=== PATIENT | male | born 1960 | race Caucasian/White ===

== ENCOUNTER 2016-05-05 12:59 | Emergency (ER) | payer BC ==
[2016-05-05] MEDS ORDERED: IBUPROFEN 800 MG TABLET PO ONE (13:19)
[2016-05-05] MEDS ORDERED: ONDANSETRON 4 MG TAB.RAPDIS PO ONE (13:19)
[2016-05-05] MEDS ORDERED: OXYCODONE-ACETAMINOPHEN 5-325 MG TABLET PO ONE (13:23)
--- NOTE | 2016-05-05 13:23 | ER Document Report ---
ED Medical Screen (RME) - General Stated Complaint: RIGHT FLANK PAIN Time seen by provider: 13:22 Mode of Arrival: Ambulatory Information source: Patient Notes: 55-year-old male history of hypertension complaining of sudden onset of right flank pain that radiated through to his right middle quadrant. It gives him the urge to have a bowel movement like a constant push. He had right groin pain when he urinated in triage. TRAVEL OUTSIDE OF THE [place] IN LAST 30 DAYS: No - Related Data Allergies/Adverse Reactions: No Known Allergies Allergy (Verified 05/05/16 13:19) Past Medical History - Past Medical History Cardiac Medical History: Reports: Hx Hypercholesterolemia, Hx Hypertension Pulmonary Medical History: Reports: Hx COPD, Hx Pneumonia Endocrine Medical History: Reports: Hx Diabetes Mellitus Type 2 - Immunizations Hx Diphtheria, Pertussis, Tetanus Vaccination: Yes Physical Exam - Vital signs Vitals: Temp Pulse Resp BP Pulse Ox 97.8 F 61 20 192/85 H 98 05/05/16 13:17 05/05/16 13:17 05/05/16 13:17 05/05/16 13:17 05/05/16 13:17 Course - Vital Signs Vital signs: Temp Pulse Resp BP Pulse Ox 97.8 F 61 20 192/85 H 98 05/05/16 13:17 05/05/16 13:17 05/05/16 13:17 05/05/16 13:17 05/05/16 13:17
[2016-05-05 13:58] LABS: ABSOLUTE BASOPHILS # (AUTO) 0.1 10^3/uL (0.0-0.2); ABSOLUTE EOSINOPHILS # (AUTO) 0.1 10^3/uL (0.0-0.6); ABSOLUTE LYMPHOCYTES (AUTO) 2.7 10^3/uL (0.5-4.7); ABSOLUTE MONOCYTES (AUTO) 1.3 10^3/uL (0.1-1.4); ABSOLUTE NEUT (AUTO) 13.8 10^3/uL (1.7-8.2); BASOPHILS % (AUTO) 0.7 % (0-2); EOSINOPHILS % (AUTO) 0.4 % (0-6); HEMATOCRIT 48.1 % (37.9-51.0); HEMOGLOBIN 16.4 g/dL (13.5-17.0); HGB HCT DIFFERENCE 1.1; LYMPHOCYTES % (AUTO) 15.2 % (13-45); MEAN CORPUSCULAR HEMOGLOBIN 29.1 pg (27.0-33.4); MEAN CORPUSCULAR VOLUME 86 fl (80-97); RED BLOOD COUNT 5.62 10^6/uL (4.35-5.55); RED CELL DISTRIBUTION WIDTH 14.3 % (11.5-14.0); SEGMENTED NEUTROPHILS % (AUTO) 76.7 % (42-78)
[2016-05-05 14:03] LABS: ALANINE AMINOTRANSFERASE 25 U/L (21-72); ALBUMIN 4.9 g/dL (3.5-5.0); ALKALINE PHOSPHATASE 129 U/L (38-126); ANION GAP 13 (5-19); ASPARTATE AMINO TRANSFERASE 17 U/L (17-59); BILIRUBIN,TOTAL 0.6 mg/dL (0.2-1.3); BLOOD UREA NITROGEN 13 mg/dL (7-20); CALCIUM 10.2 mg/dL (8.4-10.2); CARBON DIOXIDE 25 mmol/L (22-30); CHLORIDE 103 mmol/L (98-107); CREATININE RESULT 0.97 mg/dL (0.52-1.25); GLUCOSE 117 mg/dL (75-110); POTASSIUM 4.8 mmol/L (3.6-5.0); SODIUM 141.4 mmol/L (137-145); TOTAL PROTEIN 7.5 g/dL (6.3-8.2)
[2016-05-05 14:08] LABS: APPEARANCE,URINE SLIGHTLY-CLOUDY; BILIRUBIN,URINE NEGATIVE (NEGATIVE); GLUCOSE, URINE NEGATIVE (NEGATIVE); KETONES,URINE NEGATIVE (NEGATIVE); LEUKOCYTE ESTERASE,URINE TRACE (NEGATIVE); NITRITE,URINE NEGATIVE (NEGATIVE); PROTEIN,URINE NEGATIVE (NEGATIVE); UROBILINOGEN,URINE NEGATIVE mg/dL (<2.0)
[2016-05-05] MEDS ORDERED: NORMAL SALINE 1000 ML 1,000 ML IV ONE (14:28)
[2016-05-05] MEDS ORDERED: HYDROMORPHONE HCL INJ/PF 2 MG/ML AMPULE IV ONE (14:35)
[2016-05-05] MEDS ORDERED: TAMSULOSIN HCL 0.4 MG CAP.SR.24H PO ONE (15:42)
--- NOTE | 2016-05-05 16:48 | ER Document Report ---
ED GI/ - General Chief Complaint: Flank Pain Stated Complaint: RIGHT FLANK PAIN Mode of Arrival: Ambulatory Information source: Patient Notes: 55-year-old male presents to the emergency department complaining of right flank /lower abdominal pain since approximately 11:00 this morning. Patient reports sudden onset sharp pain to right flank area that has moved and now seems worse to right lower quadrant abdomen. Reports pain was worse with urination. Denies fever, hematuria, nausea or vomiting, chest pain or shortness of breath. TRAVEL OUTSIDE OF THE [place] IN LAST 30 DAYS: No - HPI Patient complains to provider of: Abdominal pain, Flank pain Onset: This morning Timing/Duration: Sudden Quality of pain: Sharp Severity at maximum: Severe Severity in ED: Severe Pain Level: 4 Location: RLQ, Right flank Sexual history: denies: New partner Similar symptoms previously: No Recently seen / treated by doctor: No - Related Data Allergies/Adverse Reactions: No Known Allergies Allergy (Verified 05/05/16 13:19) Past Medical History - General Information source: Patient - Social History Smoking Status: Current Every Day Smoker Chew tobacco use (# tins/day): Yes Frequency of alcohol use: None Drug Abuse: None Lives with: Family Family History: CAD, DM, Hyperlipidemia, Hypertension, Malignancy Patient has suicidal ideation: No Patient has homicidal ideation: No - Past Medical History Cardiac Medical History: Reports: Hx Hypercholesterolemia, Hx Hypertension Pulmonary Medical History: Reports: Hx COPD, Hx Pneumonia Endocrine Medical History: Reports: Hx Diabetes Mellitus Type 2 Surgical Hx: Negative - Immunizations Hx Diphtheria, Pertussis, Tetanus Vaccination: Yes Review of Systems - Review of Systems Constitutional: No symptoms reported EENT: No symptoms reported Cardiovascular: No symptoms reported Respiratory: No symptoms reported Gastrointestinal: See HPI Genitourinary: See HPI Male Genitourinary: No symptoms reported. denies: See HPI, Erectile dysfunction , Testicular pain, Penile discharge, Other Musculoskeletal: No symptoms reported Skin: No symptoms reported Hematologic/Lymphatic: No symptoms reported Neurological/Psychological: No symptoms reported -: Yes All other systems reviewed and negative Physical Exam - Vital signs Vitals: Temp Pulse Resp BP Pulse Ox 97.8 F 61 20 192/85 H 98 05/05/16 13:17 05/05/16 13:17 05/05/16 13:17 05/05/16 13:17 05/05/16 13:17 Interpretation: Normal - General General appearance: Appears well, Alert In distress: None - HEENT Head: Normocephalic, Atraumatic Eyes: Normal Pupils: PERRL - Respiratory Respiratory status: No respiratory distress Chest status: Nontender Breath sounds: Normal Chest palpation: Normal - Cardiovascular Rhythm: Regular Heart sounds: Normal auscultation Murmur: No Pulses: Normal: Radial, Posterior tibial, Dorsalis pedis Normal capillary refill: Yes - Abdominal Inspection: Normal Distension: No distension Bowel sounds: Normal Tenderness: Tender - Mild tenderness on palpation to right lower abdomen/pelvic area.. No: Nontender, McBurney's point, Vincent's sign, Guarding, Rebound, Other Organomegaly: No organomegaly - Back Back: Normal, Nontender. No: Tender, Deformity/step-off, CVA tenderness, Vertebra tenderness, Scars, Scoliosis, Wounds, Other - Extremities General upper extremity: Normal inspection, Nontender, Normal color, Normal ROM , Normal strength, Normal temperature. No: Tender, Edema General lower extremity: Normal inspection, Nontender, Normal color, Normal ROM , Normal strength, Normal temperature, Normal weight bearing. No: Tender, Edema , Erica's sign - Neurological Neuro grossly intact: Yes Cognition: Normal Orientation: AAOx4 [place] Coma Scale Eye Opening: Spontaneous [place] Coma Scale Verbal: Oriented [place] Coma Scale Motor: Obeys Commands [place] Coma Scale Total: 15 Speech: Normal Motor strength normal: LUE, RUE, LLE, RLE Sensory: Normal - Psychological Associated symptoms: Normal affect, Normal mood - Skin Skin Temperature: Warm Skin Moisture: Dry Skin Color: Normal Skin Turgor: Elastic Course - Re-evaluation Re-evalutation: 05/05/16 16:30 Patient hemodynamically stable, in no distress, afebrile. 3.1 millimeter stone and right distal ureteral with mild hydronephrosis and normal-appearing appendix. CMP unremarkable. Pain controlled after IV fluids and intravenous dose of Dilaudid. Patient appears stable for discharge at this time and will treat with Flomax, short course PRN pain medication. Will prescribe course of Bactrim to cover for leukocytosis and trace leukocyte Estrace/WBCs on UA, no suggestion of urosepsis or complications at this time. Home care, follow-up with PCP and urology, and ED return precautions discussed with patient who verbalized understanding and agrees with plan. - Vital Signs Vital signs: Temp Pulse Resp BP Pulse Ox 97.9 F 66 20 143/79 H 95 05/05/16 16:59 05/05/16 16:59 05/05/16 16:59 05/05/16 16:59 05/05/16 16:59 - Laboratory Result Diagrams: 05/05/16 13:30 05/05/16 13:30 Laboratory results interpreted by me: 05/05/16 05/05/16 05/05/16 13:30 13:30 13:40 WBC 18.0 H RBC 5.62 H RDW 14.3 H Absolute Neutrophils 13.8 H Glucose 117 H Alkaline Phosphatase 129 H Urine Blood LARGE H Ur Leukocyte Esterase TRACE H - Diagnostic Test Radiology reviewed: Image reviewed, Reports reviewed Discharge - Discharge Clinical Impression: Kidney stone on right side Condition: Stable Disposition: HOME, SELF-CARE Additional Instructions: KIDNEY STONE: You are passing or have passed a kidney stone. These stones are usually due to increased calcium or uric acid concentrations in your urine. Stones within the kidney itself are not painful. The pain occurs as the stone leaves the kidney to pass down the long tube, called the ureter, leading to the bladder. If the stone is small, it will usually pass by itself. Most patients can pass the stone at home. You will usually receive medications for pain, nausea or vomiting, and sometimes a medication to assist in passing the kidney stone. However, if the pain is very severe or if vomiting prevents you from taking oral pain medications, you may need to return for further treatment. Drink three or four quarts of fluids per day. You will be given pain medication (if needed) and urine strainers. Strain all your urine to see if the stone passes. If your doctor has asked you to bring the stone in for analysis, return with the stone once it has passed. Return if pain or vomiting become severe, if you develop a high fever, if you are unable to pass your urine, or if other unusual symptoms occur. PAIN MEDICATION INJECTION: You have received an injection of a pain medication. You should experience significant pain relief within 45 minutes. This drug is a narcotic - - it will impair your judgement, slow your reaction time and make you sleepy ( as well as relieve your pain). Narcotics also can cause nausea. You should not drive, work with machinery, or perform any task requiring mental alertness until all effects of the medication are gone -- six to eight hours. Do not take any alcohol, or sedatives, and do not take any other medication without checking with your physician. ORAL NARCOTIC MEDICATION: You have been given a prescription for pain control. This medication is a narcotic. It's best taken with food, as nausea can result if taken on an empty stomach. Don't operate machinery or drive within six hours of taking this medication. Do not combine this medicine with alcohol, or with any medication which can cause sedation (such as cold tablets or sleeping pills) unless you get permission from the physician. Narcotics tend to cause constipation. If possible, drink plenty of fluids and eat a diet high in fiber and fruits. Please be aware that prescription narcotics also have the potential for abuse. People become addicted to these medications because of the general sense of wellbeing that they induce. This feeling along with a significant reduction in tension, anxiety, and aggression provides a stimulating seductive quality to these drugs. Once your pain is under control, we encourage you to discard your unused narcotics. FLOMAX (tamsulosin): Flomax is a medicine that shrinks the prostate gland. It helps relieve symptoms of benign prostatic hypertrophy, such as frequent urination, weak stream, and inadequate emptying. It has been shown to dilate the ureter (tube leading from the kidney to the bladder) and help in passing kidney stones Flomax usually causes no side effects. You may notice slight tiredness and dizziness for a few days. Some patients develop nasal congestion. Rarely, impotence can occur. If the symptoms are bothersome and don't improve with continued use, call your doctor. Contact your doctor or return if you have fainting spells, severe weakness or dizziness, shortness of breath, or rash. Trimethoprim-Sulfa You have been given a prescription for trimethoprim-sulfa (TMS, Septra, Bactrim). This is a combination antibiotic of the sulfa class, often used for urinary tract infections, middle ear infections, bronchitis, shigella intestinal infection, and Pneumocystis pneumonia. TMS is usually well-tolerated. Occasional side effects include nausea and decreased appetite. Septra is not recommended for infants less than two months of age. Do not take this medication if you have experienced severe side effects or allergy to sulfa medicine. You should stop this medicine at once and contact your physician if you develop any rash, joint pain, shortness of breath, bruising, or jaundice ( yellow color in the skin), or if you develop any other new or unusual symptoms. FOLLOW-UP CARE: Drink plenty of fluids, at least 2 to 3 liters of water per day. Follow-up with your primary care provider this week as discussed. Return to the Emergency Department for any worsening symptoms or concerns. Prescriptions: Hydrocodone/Acetaminophen [[place] 5-325 mg Tablet] 1 tab PO Q6H PRN #10 tablet PRN Reason: Sulfamethoxazole/Trimethoprim [Bactrim Ds Tablet] 1 tab PO BID 7 Days Tamsulosin HCl [Flomax 0.4 mg Cap.sr] 0.4 mg PO DAILY #7 cap.sr.24h Forms: Elevated Blood Pressure Referrals: YVONNE STACK MD [ACTIVE STAFF] - Follow up tomorrow
[2016-05-05 17:34] VITALS: BP 143/79
== END 2016-05-05 16:58 | disposition home or self-care (01) ==
LOC: ER 12:59
DX: N13.2 Hydronephrosis with renal and ureteral calculous obstruction (principal); I10 Essential (primary) hypertension; J44.9 Chronic obstructive pulmonary disease, unspecified; E11.9 Type 2 diabetes mellitus without complications; F17.200 Nicotine dependence, unspecified, uncomplicated
CPT/HCPCS: 99284; 96361; 96374; 36415; 85025; 80053; 81001; 76380; J1170; J7030; S0119

== ENCOUNTER → 2016-06-01 | Outpatient (CLI) | payer SELFPAY | LOC: RAD 14:00 | PROVIDERS: ATTEND Urology | DX: N20.0 Calculus of kidney (principal) | CPT/HCPCS: 74000 ==

== ENCOUNTER 2016-09-24 04:56 | Emergency (ER) | payer SELFPAY ==
[2016-09-24] MEDS ORDERED: PENICILLIN V POTASSIUM 500 MG TABLET PO ONE (06:22)
[2016-09-24] MEDS ORDERED: ONDANSETRON 4 MG TAB.RAPDIS PO ONE (06:22)
[2016-09-24] MEDS ORDERED: ACETAMINOPHEN 325 MG TABLET PO ONE (06:22)
[2016-09-24] MEDS ORDERED: IBUPROFEN 800 MG TABLET PO ONE (06:22)
[2016-09-24] MEDS ORDERED: LIDOCAINE 2% VISCOUS SOLN 20 ML UDCUP PO ONE (06:24)
--- NOTE | 2016-09-24 06:24 | ER Document Report ---
HPI - HPI Patient complains to provider of: dental pain Onset: Yesterday Onset/Duration: Gradual Pain Level: 3 Context: 55 yo male c/o lower right lower 2nd decayed molar pain worse for 2 days. No fever or facial swelling. Associated Symptoms: None Exacerbated by: Denies Relieved by: Denies Similar symptoms previously: Yes Recently seen / treated by doctor: No - ROS ROS below otherwise negative: Yes Systems Reviewed and Negative: Yes All other systems reviewed and negative - DERM Skin Color: Normal, [place] Past Medical History - General Information source: Patient - Social History Smoking Status: Current Every Day Smoker Frequency of alcohol use: None Drug Abuse: None Lives with: Spouse/Significant other Family History: CAD, DM, Hyperlipidemia, Hypertension, Malignancy Patient has suicidal ideation: No Patient has homicidal ideation: No - Past Medical History Cardiac Medical History: Reports: Hx Hypercholesterolemia, Hx Hypertension Pulmonary Medical History: Reports: Hx COPD, Hx Pneumonia Endocrine Medical History: Reports: Hx Diabetes Mellitus Type 2 Renal/ Medical History: Denies: Hx Peritoneal Dialysis - Immunizations Hx Diphtheria, Pertussis, Tetanus Vaccination: Yes Vertical Provider Document - CONSTITUTIONAL Agree With Documented VS: Yes Exam Limitations: No Limitations General Appearance: No Apparent Distress - INFECTION CONTROL TRAVEL OUTSIDE OF THE [place] IN LAST 30 DAYS: No - HEENT HEENT: Normocephalic Notes: decayed 2nd molar lower right with gingival retraction and inflammation. No abscess - NECK Neck: Supple. negative: Lymphadenopathy-Left, Lymphadenopathy-Right - RESPIRATORY Respiratory: Breath Sounds Normal, No Respiratory Distress O2 Sat by Pulse Oximetry: 95 - CARDIOVASCULAR Cardiovascular: Regular Rate, Regular Rhythm - NEURO Level of Consciousness: Awake, Alert, Appropriate - DERM Integumentary: Warm, Dry, No Rash Course - Vital Signs Vital signs: Temp Pulse Resp BP Pulse Ox 97.5 F 87 16 185/104 H 95 09/24/16 05:00 09/24/16 05:00 09/24/16 05:00 09/24/16 05:00 09/24/16 05:00 Discharge - Discharge Clinical Impression: dental pain and decay Condition: Good Disposition: HOME, SELF-CARE Instructions: Penicillin V K ([facility]), Toothache ([facility]), Anti-Inflammatory Medication ([facility]), Warm Packs ([facility]), Dentist Additional Instructions: warm compress see the dentist to er if worse Prescriptions: Ibuprofen [Motrin 800 mg Tablet] 800 mg PO Q8HP PRN #30 tablet PRN Reason: Penicillin V Potassium [Penicillin Vk 500 mg Tablet] 500 mg PO QID #40 tablet Forms: Return to Work
[2016-09-24 06:38] VITALS: BP 191/107
== END 2016-09-24 06:38 | disposition home or self-care (01) ==
LOC: ER 04:56
DX: K02.9 Dental caries, unspecified (principal); F17.200 Nicotine dependence, unspecified, uncomplicated; E78.00 Pure hypercholesterolemia, unspecified; I10 Essential (primary) hypertension; J44.9 Chronic obstructive pulmonary disease, unspecified; E11.9 Type 2 diabetes mellitus without complications
CPT/HCPCS: 99282; S0119; J3490

== ENCOUNTER 2016-12-24 07:59 | Emergency (ER) | payer SELFPAY ==
[2016-12-24] MEDS ORDERED: ALBUTEROL SULFATE 0.083% NEB 2.5 MG/3 ML AMPUL NEB ONE (08:17)
[2016-12-24] MEDS ORDERED: IPRATROPIUM/ALBUTEROL 0.5-2.5 MG/3 ML AMPUL NEB ONE (08:17)
[2016-12-24] MEDS ORDERED: PREDNISONE 20 MG TABLET PO ONE (08:17)
--- NOTE | 2016-12-24 09:01 | RADIOLOGY REPORT (SQ) ---
EXAM DESCRIPTION: CHEST PA/LAT COMPLETED DATE/TIME: 12/24/2016 8:41 am REASON FOR STUDY: sob COMPARISON: CT angio chest 07/18/2014 Two-view chest 01/27/2015, 01/13/2016 EXAM PARAMETERS: NUMBER OF VIEWS: two views TECHNIQUE: Digital Frontal and Lateral radiographic views of the chest acquired. RADIATION DOSE: NA LIMITATIONS: none FINDINGS: LUNGS AND PLEURA: No opacities, masses or pneumothorax. No pleural effusion. MEDIASTINUM AND HILAR STRUCTURES: No masses or contour abnormalities. HEART AND VASCULAR STRUCTURES: Heart normal size. No evidence for failure. BONES: No acute findings. HARDWARE: None in the chest. OTHER: No other significant finding. IMPRESSION: NO SIGNIFICANT RADIOGRAPHIC FINDING IN THE CHEST. TECHNICAL DOCUMENTATION: JOB ID: [id number] [employer]- All Rights Reserved
[2016-12-24] MEDS ORDERED: ACETAMINOPHEN 325 MG TABLET PO ONE (09:08)
[2016-12-24] MEDS ORDERED: CEFTRIAXONE INJ 1000 MG VIAL IM ONE (09:10)
[2016-12-24] MEDS ORDERED: AZITHROMYCIN 250 MG TABLET PO ONE (09:10)
[2016-12-24] MEDS ORDERED: LIDOCAINE 1% INJ-PF (10 MG/ML) 30 ML SDV INFIL ONE (09:10)
[2016-12-24] MEDS ORDERED: ALBUTEROL SULFATE HFA (90 MCG/PUFF) 8 GM MDI (1 MDI/ER DISP) IH ONE (09:17)
--- NOTE | 2016-12-24 09:22 | ER Document Report ---
ED General - General Chief Complaint: Congestion Stated Complaint: COUGH Time Seen by Provider: 12/24/16 08:13 TRAVEL OUTSIDE OF THE [place] IN LAST 30 DAYS: No - HPI Patient complains to provider of: Cough congestion Notes: Patient is a smoker coming in for cough and congestion ongoing for the past few days. Patient states productive sputum now is gone from white to green. Patient does state he smokes approximately 1 pack a day. Long history of smoking. Patient denies any recent travel denies any chest pain abdominal pain fevers chills nausea vomiting. Upon my evaluation patient is resting currently. - Related Data Allergies/Adverse Reactions: No Known Allergies Allergy (Verified 12/24/16 08:04) Past Medical History - Social History Smoking Status: Current Every Day Smoker Frequency of alcohol use: None Drug Abuse: None Family History: CAD, DM, Hyperlipidemia, Hypertension, Malignancy - Past Medical History Cardiac Medical History: Reports: Hx Hypercholesterolemia, Hx Hypertension Pulmonary Medical History: Reports: Hx COPD, Hx Pneumonia Endocrine Medical History: Reports: Hx Diabetes Mellitus Type 2 Renal/ Medical History: Denies: Hx Peritoneal Dialysis - Immunizations Hx Diphtheria, Pertussis, Tetanus Vaccination: Yes Review of Systems - Review of Systems Constitutional: No symptoms reported EENT: No symptoms reported Cardiovascular: No symptoms reported Respiratory: Short of breath, Wheezing Gastrointestinal: No symptoms reported Genitourinary: No symptoms reported Male Genitourinary: No symptoms reported Musculoskeletal: No symptoms reported Skin: No symptoms reported Hematologic/Lymphatic: No symptoms reported Neurological/Psychological: No symptoms reported -: Yes All other systems reviewed and negative Physical Exam - Vital signs Vitals: Temp Pulse Resp BP Pulse Ox 97.7 F 100 18 176/86 H 100 12/24/16 08:02 12/24/16 08:02 12/24/16 08:02 12/24/16 08:02 12/24/16 08:02 Interpretation: Normal - General General appearance: Appears well, Alert - HEENT Head: Normocephalic, Atraumatic Eyes: Normal Pupils: PERRL - Respiratory Respiratory status: No respiratory distress Chest status: Nontender Breath sounds: Productive cough, Wheezing Chest palpation: Normal - Cardiovascular Rhythm: Regular Heart sounds: Normal auscultation Murmur: No - Abdominal Inspection: Normal Distension: No distension Bowel sounds: Normal Tenderness: Nontender Organomegaly: No organomegaly - Back Back: Normal, Nontender - Extremities General upper extremity: Normal inspection, Nontender, Normal color, Normal ROM , Normal temperature General lower extremity: Normal inspection, Nontender, Normal color, Normal ROM , Normal temperature, Normal weight bearing. No: Erica's sign - Neurological Neuro grossly intact: Yes Cognition: Normal Orientation: AAOx4 [place] Coma Scale Eye Opening: Spontaneous [place] Coma Scale Verbal: Oriented [place] Coma Scale Motor: Obeys Commands [place] Coma Scale Total: 15 Speech: Normal Motor strength normal: LUE, RUE, LLE, RLE Sensory: Normal - Psychological Associated symptoms: Normal affect, Normal mood - Skin Skin Temperature: Warm Skin Moisture: Dry Skin Color: Normal Course - Re-evaluation Re-evalutation: 12/24/16 13:56 Patient presentation consistent with COPD exacerbation with bronchitis. Educated patient about smoking cessation. Patient states understanding and understands that without stopping smoking medications represcribed they will probably not provide much relief. Patient's lungs improved after breathing treatments. Will start on steroids Z-[place] due to changes sputum and bronchodilators. Patient was given an IM shot of Rocephin prior to discharge - Vital Signs Vital signs: Temp Pulse Resp BP Pulse Ox 97.8 F 96 18 145/89 H 91 L 12/24/16 09:57 12/24/16 09:57 12/24/16 08:02 12/24/16 09:57 12/24/16 09:57 Discharge - Discharge Clinical Impression: Obstructive chronic bronchitis with exacerbation, Tobacco use disorder Condition: Good Disposition: HOME, SELF-CARE Instructions: Bronchitis With Bronchospasm (Wheezing) ([facility]), Stop Smoking ([facility]) Additional Instructions: Please stop smoking. The medications that were prescribed today will not do any good if he continues to smoke. Return to the ER symptoms worsen. Follow- up with your primary care physician. Prescriptions: Albuterol Sulfate [Proair HFA Inhalation Aerosol 8.5 gm MDI] 2 puff IH Q4H PRN # 1 mdi PRN Reason: Azithromycin [Zithromax 250 mg Tablet] 250 mg PO ASDIR PRN #6 tablet PRN Reason: Prednisone [Deltasone] 60 mg PO DAILY 5 Days tablet Forms: Elevated Blood Pressure, Smoking Cessation Education, Return to Work
[2016-12-24 10:03] VITALS: BP 145/89
== END 2016-12-24 10:00 | disposition home or self-care (01) ==
LOC: ER 07:59
DX: J44.1 Chronic obstructive pulmonary disease with (acute) exacerbation (principal); R09.81 Nasal congestion; R05 Cough; F17.200 Nicotine dependence, unspecified, uncomplicated
CPT/HCPCS: 94640 ×2; 99283; 96372; 71020; J3490 ×2; J7512; J0696; J7620

== ENCOUNTER 2017-06-29 07:01 | Emergency (ER) | payer BC ==
[2017-06-29] MEDS ORDERED: IPRATROPIUM/ALBUTEROL 0.5-2.5 MG/3 ML AMPUL NEB ONE (07:31)
[2017-06-29] MEDS ORDERED: GUAIFENESIN/D-METHORPHAN (200-20 MG) SYRUP 10 ML PO ONE (07:31)
[2017-06-29 08:07] VITALS: BP 125/92
--- NOTE | 2017-06-29 08:16 | ER Document Report ---
ED Respiratory Problem - General Chief Complaint: Cold Symptoms Stated Complaint: COUGH,CHEST PAIN Time Seen by Provider: 06/29/17 07:31 Mode of Arrival: Ambulatory Information source: Patient Notes: Patient is a 56-year-old male with COPD who presents to the ER today for cough times a week and a half, sinus congestion, intermittent chills. Patient does not know if he has had fever or not, he denies any vomiting, diarrhea. He has been taking albuterol twice a day which she states only makes the cough worse. TRAVEL OUTSIDE OF THE [place] IN LAST 30 DAYS: No - Related Data Allergies/Adverse Reactions: No Known Allergies Allergy (Verified 12/24/16 08:04) Past Medical History - General Information source: Patient - Social History Smoking Status: Never Smoker Chew tobacco use (# tins/day): No Frequency of alcohol use: None Drug Abuse: None Family History: CAD, DM, Hyperlipidemia, Hypertension, Malignancy. denies: Arthritis, COPD, CVA, Thyroid Disfunction Patient has suicidal ideation: No Patient has homicidal ideation: No - Past Medical History Cardiac Medical History: Reports: Hx Hypercholesterolemia, Hx Hypertension Pulmonary Medical History: Reports: Hx COPD, Hx Pneumonia Endocrine Medical History: Reports: Hx Diabetes Mellitus Type 2 Renal/ Medical History: Denies: Hx Peritoneal Dialysis - Immunizations Immunizations up to date: Yes Hx Diphtheria, Pertussis, Tetanus Vaccination: Yes Review of Systems - Review of Systems Constitutional: See HPI EENT: See HPI Cardiovascular: No symptoms reported Respiratory: See HPI Gastrointestinal: No symptoms reported Genitourinary: No symptoms reported Male Genitourinary: No symptoms reported Musculoskeletal: No symptoms reported Skin: No symptoms reported Hematologic/Lymphatic: No symptoms reported Neurological/Psychological: No symptoms reported Physical Exam - Vital signs Vitals: Temp Pulse Resp BP Pulse Ox 98.4 F 84 17 151/92 H 97 06/29/17 07:20 06/29/17 07:20 06/29/17 07:20 06/29/17 07:20 06/29/17 07:20 - Notes Notes: PHYSICAL EXAMINATION: GENERAL: Mildly ill-appearing, but in no acute distress. HEAD: Atraumatic, normocephalic. EYES: Pupils equal round and reactive to light, extraocular movements intact, sclera anicteric, conjunctiva are normal. ENT: ear canals without erythema or foreign body, TMs pearly ramos with good bony landmarks, nares with mucoid discharge , oropharynx erythematous without enlarged tonsils without exudates. Moist mucous membranes. maxillary and frontal sinuses tender to palpation NECK: Normal range of motion, supple without lymphadenopathy LUNGS: Moderate expiratory wheezes, no rales or rhonchi. HEART: Regular rate and rhythm without murmurs EXTREMITIES: Normal range of motion, no pitting edema. No cyanosis. NEUROLOGICAL: Cranial nerves grossly intact. Normal sensory/motor exams. PSYCH: Normal mood, normal affect. SKIN: Warm, Dry, normal turgor, no rashes or lesions noted Course - Vital Signs Vital signs: Temp Pulse Resp BP Pulse Ox 97.9 F 84 18 125/92 H 97 06/29/17 08:04 06/29/17 08:04 06/29/17 08:04 06/29/17 08:04 06/29/17 08:04 Discharge - Discharge Clinical Impression: Obstructive chronic bronchitis with exacerbation Sinusitis Qualifiers: Sinusitis location: unspecified location Chronicity: acute Recurrence: non- recurrent Qualified Code(s): J01.90 - Acute sinusitis, unspecified Condition: Stable Disposition: HOME, SELF-CARE Additional Instructions: Return immediately for any new or worsening symptoms. Follow up with primary care provider, call tomorrow to make followup appointment. Prescriptions: Hydrocodone Bit/Homatropine [Hycodan Syrup 5-1.5 mg/5 ml Ud Cup] 5 ml PO Q4HP PRN #120 ml PRN Reason: Azithromycin [Zithromax 250 mg Tablet] 250 mg PO ASDIR PRN #6 tablet PRN Reason: Prednisone 60 mg PO DAILY #15 tablet
== END 2017-06-29 08:39 | disposition home or self-care (01) ==
LOC: ER 07:01
DX: J44.1 Chronic obstructive pulmonary disease with (acute) exacerbation (principal); J01.90 Acute sinusitis, unspecified; R05 Cough; R68.83 Chills (without fever); I10 Essential (primary) hypertension; E11.9 Type 2 diabetes mellitus without complications; Z87.01 Personal history of pneumonia (recurrent)
CPT/HCPCS: 94640; 99283; J3490; J7620

== ENCOUNTER 2017-07-25 14:36 | Emergency (ER) | payer BC ==
[2017-07-25] MEDS ORDERED: DEXAMETHASONE SOD PHOS INJ 10 MG/1 ML VIAL IM ONE (15:35)
[2017-07-25] MEDS ORDERED: KETOROLAC TROMETHAMINE 60 MG/2 ML SDV IM ONE (15:35)
[2017-07-25] MEDS ORDERED: LIDOCAINE 5% (700 MG) TRANSDERMAL ADH..PATCH TP ONE (15:36)
--- NOTE | 2017-07-25 15:43 | ER Document Report ---
ED General - General Chief Complaint: Hip Pain Stated Complaint: HIP PAIN Time Seen by Provider: 07/25/17 15:23 Mode of Arrival: Ambulatory Information source: Patient Notes: 56-year-old male presents to ED for concern of pain to the right lower back right hip and down to the right knee. He has severe tenderness to the SI joint. He states he was sitting in bed of his truck for lunch on Wednesday when he stood up to go back to work he had a sharp sudden pain that was to his right SI joint and down his leg. He states he has had pain ever since then. He states he has a previous back injury but never had pain like this before. He is alert and oriented, respirations even and unlabored, speak in full complete sentences, and ambulate with steady even gait TRAVEL OUTSIDE OF THE [place] IN LAST 30 DAYS: No - HPI Onset: Last week Onset/Duration: Gradual, Persistent Quality of pain: Sharp, Throbbing Severity: Moderate Pain Level: 4 Associated symptoms: Other - Right low back pain radiating down his leg Exacerbated by: Sitting, Movement, Walking Relieved by: Denies Similar symptoms previously: Yes Recently seen / treated by doctor: No - Related Data Allergies/Adverse Reactions: No Known Allergies Allergy (Verified 12/24/16 08:04) Past Medical History - General Information source: Patient - Social History Smoking Status: Current Every Day Smoker Cigarette use (# per day): Yes - Pack per day Chew tobacco use (# tins/day): No Smoking Education Provided: Yes - 4 minutes Frequency of alcohol use: None Drug Abuse: None Occupation: Construction Lives with: Family Family History: CAD, DM, Hyperlipidemia, Hypertension, Malignancy. denies: Arthritis, COPD, CVA, Thyroid Disfunction Patient has suicidal ideation: No Patient has homicidal ideation: No - Past Medical History Cardiac Medical History: Reports: Hx Hypercholesterolemia, Hx Hypertension Pulmonary Medical History: Reports: Hx COPD, Hx Pneumonia EENT Medical History: Reports: None Neurological Medical History: Reports: None Endocrine Medical History: Reports: Hx Diabetes Mellitus Type 2 Renal/ Medical History: Reports: None Malignancy Medical History: Reports None GI Medical History: Reports: None Musculoskeltal Medical History: Reports Hx Musculoskeletal Deformity, Reports Hx Musculoskeletal Trauma Skin Medical History: Reports None Psychiatric Medical History: Reports: None Traumatic Medical History: Reports: None Infectious Medical History: Reports: None Surgical Hx: Negative Past Surgical History: Reports: None - Immunizations Immunizations up to date: Yes Hx Diphtheria, Pertussis, Tetanus Vaccination: Yes Review of Systems - Review of Systems Constitutional: No symptoms reported EENT: No symptoms reported Cardiovascular: No symptoms reported Respiratory: No symptoms reported Gastrointestinal: No symptoms reported Genitourinary: No symptoms reported Male Genitourinary: No symptoms reported Musculoskeletal: Back pain, Muscle pain Skin: No symptoms reported Hematologic/Lymphatic: No symptoms reported Neurological/Psychological: No symptoms reported -: Yes All other systems reviewed and negative Physical Exam - Vital signs Vitals: Temp Pulse Resp BP Pulse Ox 98.7 F 95 20 160/87 H 95 07/25/17 14:49 07/25/17 14:49 07/25/17 14:49 07/25/17 14:49 07/25/17 14:49 Interpretation: Normal - General General appearance: Appears well, Alert - HEENT Head: Normocephalic, Atraumatic Eyes: Normal Pupils: PERRL - Respiratory Respiratory status: No respiratory distress Chest status: Nontender Breath sounds: Normal Chest palpation: Normal - Cardiovascular Rhythm: Regular Heart sounds: Normal auscultation Murmur: No - Abdominal Inspection: Normal Distension: No distension Bowel sounds: Normal Tenderness: Nontender Organomegaly: No organomegaly - Back Back: Normal, Tender - right SI joint and across the thigh down to the knee. No : Deformity/step-off, CVA tenderness, Vertebra tenderness, Scars, Scoliosis, Wounds - Extremities General upper extremity: Normal inspection, Nontender, Normal color, Normal ROM , Normal temperature General lower extremity: Normal inspection, Nontender, Normal color, Normal ROM , Normal temperature, Normal weight bearing. No: Erica's sign - Neurological Neuro grossly intact: Yes Cognition: Normal Orientation: AAOx4 Salo Coma Scale Eye Opening: Spontaneous Salo Coma Scale Verbal: Oriented Salo Coma Scale Motor: Obeys Commands [place] Coma Scale Total: 15 Speech: Normal Motor strength normal: LUE, RUE, LLE, RLE Sensory: Normal - Psychological Associated symptoms: Normal affect, Normal mood - Skin Skin Temperature: Warm Skin Moisture: Dry Skin Color: Normal Course - Re-evaluation Re-evalutation: 07/25/17 17:30 X-ray showed no acute changes. Patient was treated with Lidoderm Toradol Decadron and was discharged home with prescription for Flexeril. Patient to follow-up with his primary doctor. Wrote a prescription for a few Percocet his he said he did not get a lot of relief from the Toradol Decadron and Lidoderm. Patient was also given instructions for vyyj-[id number]-[id number] lidocaine gel or patches. - Vital Signs Vital signs: Temp Pulse Resp BP Pulse Ox 98.0 F 77 16 145/78 H 95 07/25/17 17:39 07/25/17 17:39 07/25/17 17:39 07/25/17 17:39 07/25/17 17:39 - Diagnostic Test Radiology reviewed: Image reviewed, Reports reviewed Discharge - Discharge Clinical Impression: Low back pain Qualifiers: Chronicity: acute Back pain laterality: right Sciatica presence: with sciatica Sciatica laterality: sciatica of right side Qualified Code(s): M54.41 - Lumbago with sciatica, right side Condition: Stable Disposition: HOME, SELF-CARE Instructions: Family Physicians / Practices Additional Instructions: LOW BACK PAIN: Three out of every four people will have an episode of disabling back pain during their lifetime. Most commonly the pain is due to straining of the muscles and ligaments in the low back. Usual treatment includes: (1) Rest on a firm surface. Avoid lying on your stomach. (2) Ice pack the painful area. After a few days, gentle heat may be used intermittently to relax the area, or ice packs can be continued. (3) Medication may be needed -- muscle relaxers and antiinflammatory medicines are commonly used. (4) As the back improves, exercises are prescribed to strengthen the back and abdominal muscles. Your doctor will advise you on the proper care for your back at each stage in your recovery. You may be better in a few days -- or healing may take several weeks. If new symptoms of a "herniated disc" (radiation of pain, numbness, or tingling down the back of the leg or weakness in the leg) occur, you should be re-examined. Further testing may be necessary. ORAL NARCOTIC MEDICATION: You have been given a prescription for pain control. This medication is a narcotic. It's best taken with food, as nausea can result if taken on an empty stomach. Don't operate machinery or drive within six hours of taking this medication. Do not combine this medicine with alcohol, or with any medication which can cause sedation (such as cold tablets or sleeping pills) unless you get permission from the physician. Narcotics tend to cause constipation. If possible, drink plenty of fluids and eat a diet high in fiber and fruits. Please be aware that prescription narcotics also have the potential for abuse. People become addicted to these medications because of the general sense of wellbeing that they induce. This feeling along with a significant reduction in tension, anxiety, and aggression provides a stimulating seductive quality to these drugs. Once your pain is under control, we encourage you to discard your unused narcotics. MUSCLE RELAXERS: Muscle relaxing medications are usually prescribed for acute muscle spasm or injury to the neck and back. They are often combined with antiinflammatory pain medication for increased relief. You may stop the muscle relaxer when the pain and stiffness have improved. Start the medication again if spasms recur. Muscle relaxers may cause drowsiness, especially with the first dose. Do not operate machinery or drive while under the effects of the medication. Most muscle relaxers last up to 24 hours. Do not combine the medication with alcohol. ICE PACKS: Apply ice packs frequently against the painful area. Many different schedules are recommended, such as "20 minutes on, 20 minutes off" or "one hour ice, two hours rest." If you need to work, you may need to go longer between ice treatments. You should plan to have the area ice packed AT LEAST one fourth of the time. The ice should be applied over the wrap, tape, or splint, or over a layer of cloth -- not directly against the skin. Some ice bags have a built-in cloth and can be put directly on the skin. WARM PACKS: After approximately two days, apply gentle heat (such as a heating pad or hot water bottle) for about 20 to 30 minutes about every two hours -- at least four times daily. Warmth and elevation will help you make a more rapid recovery , and will ease the pain considerably. Do not use HOT heat, and never apply heat for longer than 30 minutes. The continuous heat can invisibly damage skin and muscles -- even when no burn is seen on the surface. Damaged muscles can make you MORE sore. Toradol Injection You have been given an injection of ketorolac tromethamine (Toradol). This is an excellent, safe drug for pain control. It also has potent antiinflammatory action. You should have significant pain relief within about one hour. Toradol is not addicting and is non-sedating. It does not interfere with driving or work. Call or return if you develop itching, hives, shortness of breath, or rash. STEROID MEDICATION: You have been given an injection of medicine of the cortisone/steroid class. This medication is used to control inflammation or allergy. It is often continued as a pill for a short period of time, until the acute process subsides. There are usually no side effects from short-term use of cortisone-like medications. Some persons feel an increased sense of well-being and are not sleepy at bedtime. Long-term use of cortisone medications is best avoided, unless required for a severe condition. If your condition does not remit, or relapses after the course of corticosteroid medication, you should consult your physician. Stretching Exercises for the Back The physician has recommended that you begin stretching exercises for your back. These are often used even while the back is painful. However, you should notify the physician if the activities seem to increase your pain. PELVIC TILT: Lie flat on your back with knees bent. Tighten your stomach and buttock muscles so it flattens your lower back against the floor. Hold 10 seconds. Repeat 10 times, twice daily. KNEE RAISE: Lying on the back with knees bent, raise one knee to your chest, then the other. Hold both knees against the chest 10 seconds, then lower one knee at a time. Repeat 10 times, twice daily. PARTIAL TRUNK RAISE: Lie face down, arms at your sides. Keeping your waist on the floor, use your arms raise your chest up. Support yourself on your elbows for 30 seconds. Repeat twice daily, increasing the time to two minutes as you recover. Please remove the Lidoderm patch in 12 hours from when put on. Then wait 12 hours and then start using Aspercreme lidocaine gel or [id number] Lidoderm patches. FOLLOW-UP CARE: If you have been referred to a physician for follow-up care, call the physician s office for an appointment as you were instructed or within the next two days. If you experience worsening or a significant change in your symptoms, notify the physician immediately or return to the Emergency Department at any time for re-evaluation. Prescriptions: Oxycodone HCl/Acetaminophen [Percocet 5-325 mg Tablet] 1 tab PO Q6HP PRN #5 tablet PRN Reason: Cyclobenzaprine HCl [Flexeril 10 mg Tablet] 10 mg PO TIDP PRN #15 tab PRN Reason: Forms: Elevated Blood Pressure, Return to Work
--- NOTE | 2017-07-25 17:12 | RADIOLOGY REPORT (SQ) ---
EXAM DESCRIPTION: L SPINE WHOLE COMPLETED DATE/TIME: 07/25/2017 4:34 pm REASON FOR STUDY: low back pian with pain down right leg to knee COMPARISON: None. NUMBER OF VIEWS: Five views including obliques. TECHNIQUE: AP, lateral, oblique, and sacral radiographic images acquired of the lumbar spine. LIMITATIONS: None. FINDINGS: MINERALIZATION: Normal. SEGMENTATION: Normal. No transitional anatomy. ALIGNMENT: Normal. VERTEBRAE: Maintained height. No fracture or worrisome bone lesion. DISCS: Preserved height. No significant osteophytes or end plate irregularity. POSTERIOR ELEMENTS: Pedicles and facets are intact. No pars defect or posterior arch defects. HARDWARE: None in the spine. PARASPINAL SOFT TISSUES: Normal. PELVIS: Intact as visualized. No fractures or worrisome bone lesions. SI joints intact. OTHER: No other significant finding. IMPRESSION: NORMAL 5 VIEW LUMBAR SPINE. TECHNICAL DOCUMENTATION: JOB ID: [id number] [employer]- All Rights Reserved Reading location - IP/workstation name: [email or web address]
[2017-07-25 17:42] VITALS: BP 145/78
== END 2017-07-25 17:42 | disposition home or self-care (01) ==
LOC: ER 14:36
DX: M54.41 Lumbago with sciatica, right side (principal); F17.210 Nicotine dependence, cigarettes, uncomplicated; E78.00 Pure hypercholesterolemia, unspecified; I10 Essential (primary) hypertension; J44.9 Chronic obstructive pulmonary disease, unspecified; E11.9 Type 2 diabetes mellitus without complications
CPT/HCPCS: 99406; 99283; 96372; 72110; J1885; J1100

== ENCOUNTER 2017-10-18 07:11 | Day surgery (SDC) | payer BC ==
[2017-10-18] MEDS ORDERED: PROPOFOL INJ 200 MG/20 ML VIAL IV ONE (07:46)
[2017-10-18 08:54] VITALS: BP 121/79
--- NOTE | 2017-10-18 12:59 | Operative Report ---
Operative Report DATE OF SURGERY: 10/18/17 Operative Report: The risks, benefits and alternatives of the procedure including risk of bleeding , perforation requiring surgery are explained to the patient in detail and informed consent is obtained. Patient is brought back to the endoscopy suite and placed in the left, lateral decubital position. Timeout was called. Propofol medications administered. A rectal examination is done which did not reveal any masses, tears or fissures. An Olympus video scope was inserted to the patient's rectum. The scope was then carefully advanced all the way to the cecum. The cecum was identified by the usual anatomical landmarks including the ileocecal valve as well as the appendiceal orifice. Photodocumentation was obtained. The scope was then sequentially pulled back via the various segments of the colon including the ascending colon, hepatic flexure, transverse colon, splenic flexure, descending colon and finally into the rectosigmoid portions of the colon. Retroflexion maneuver was performed. PREOPERATIVE DIAGNOSIS: Colorectal cancer screening POSTOPERATIVE DIAGNOSIS: Large pedunculated polyp noted in the descending colon. It is removed via snare polypectomy. 2 endoclips were placed to reduce the risk of potential post polypectomy bleeding. Internal hemorrhoids OPERATION: Colonoscopy with snare polypectomy SURGEON: SHAHRAM SHEPHERD ANESTHESIA: LMAC TISSUE REMOVED OR ALTERED: As noted above. COMPLICATIONS: None. ESTIMATED BLOOD LOSS: None. INTRAOPERATIVE FINDINGS: As noted above. PROCEDURE: Patient tolerated the procedure well. No immediate postprocedure complications are noted. Patient discharged in good condition. Discharge date 10/18/2017. Discharge diet: Regular. Discharge activity: Regular. 2-3-week follow-up to discuss findings. Patient is instructed to call the office or proceed to the emergency room should there be any further problems or questions. We will wait on the pathology. Would recommend surveillance colonoscopy early next year, given the size of the polyp.
== END 2017-10-18 08:55 | disposition home or self-care (01) ==
LOC: END 07:11
PROVIDERS: ATTEND Internal Medicine Gastroenterology
DX: Z12.11 Encounter for screening for malignant neoplasm of colon (principal); D12.4 Benign neoplasm of descending colon; K64.8 Other hemorrhoids; J44.9 Chronic obstructive pulmonary disease, unspecified; I10 Essential (primary) hypertension; F17.210 Nicotine dependence, cigarettes, uncomplicated; Z80.0 Family history of malignant neoplasm of digestive organs; Z79.51 Long term (current) use of inhaled steroids; Z79.899 Other long term (current) drug therapy
CPT/HCPCS: 45385; J2704; 811

== ENCOUNTER 2018-02-08 08:34 | Emergency (ER) | payer BC ==
--- NOTE | 2018-02-08 09:09 | ER Document Report ---
ED General - General Chief Complaint: Rib Pain Stated Complaint: RIGHT SIDE RIB PAIN Time Seen by Provider: 02/08/18 09:09 Notes: Patient is a 57-year-old male with COPD that presents to the emergency department for chief complaint of rib pain induced by coughing. Patient states that he had a coughing fit earlier today, and during it he felt a pop in his right lower ribs, and since then he has had significant pain associated with coughing and deep breath. He denies any recent fevers, chills, night sweats. He states he is on medication for his COPD, but 1 of the medications he cannot currently afford. He feels that his COPD might be flaring up because he is felt slightly more short of breath. He denies noting any nausea, vomiting or abdominal pain. He currently rates the pain as a 6 out of 10, sharp in nature and constant. Past Medical History: COPD, hyperlipidemia, hypertension Past Surgical History: Denies surgical history Social History: Admits to smoking cigarettes daily, denies current alcohol or drug use Family History: Reviewed and noncontributory for presenting illness Allergies: Reviewed, see documented allergy list. REVIEW OF SYSTEMS: Unless otherwise stated in this report the patient's positive and negative responses for review of systems for constitutional, eyes, ENT, cardiovascular, respiratory, gastrointestinal, neurological, genitourinary, musculoskeletal, and integumentary systems and related systems to the presenting problem are either as stated in the HPI or were not pertinent or were negative for the symptoms and/or complaints related to the presenting medical problem. PHYSICAL EXAMINATION: Vital signs reviewed, nursing noted reviewed. GENERAL: Well-appearing, well-nourished and in no acute distress. HEAD: Atraumatic, normocephalic. EYES: Eyes appear normal, extraocular movements intact, sclera anicteric, conjunctiva are normal. ENT: nares patent, oropharynx clear without exudates. Moist mucous membranes. NECK: Normal range of motion, supple without lymphadenopathy LUNGS: Diffuse wheezing throughout all lung emerson, but equal bilaterally, no rales, or respiratory distress, there is right lower rib lateral tenderness with palpation, reproducible pain. No step-off or deformity. HEART: Regular rate and rhythm without murmurs ABDOMEN: Soft, nontender, normoactive bowel sounds. No rebound, guarding, or rigidity. No masses appreciated. EXTREMITIES: Nontender, good range of motion, no pitting or edema. NEUROLOGICAL: No focal neurological deficits. Moves all extremities spontaneously Motor and sensory grossly intact on exam. PSYCH: Normal mood, normal affect. SKIN: Warm, Dry, normal turgor, no rashes or lesions noted on exposed skin TRAVEL OUTSIDE OF THE [place] IN LAST 30 DAYS: No - Related Data Allergies/Adverse Reactions: No Known Allergies Allergy (Verified 10/18/17 07:04) Past Medical History - Social History Smoking Status: Current Every Day Smoker Family History: CAD, DM, Hyperlipidemia, Hypertension, Malignancy. denies: Arthritis, COPD, CVA, Thyroid Disfunction - Past Medical History Cardiac Medical History: Reports: Hx Hypercholesterolemia, Hx Hypertension Denies: Hx Coronary Artery Disease, Hx Heart Attack Pulmonary Medical History: Reports: Hx COPD, Hx Pneumonia Denies: Hx Asthma, Hx Bronchitis Neurological Medical History: Denies: Hx Cerebrovascular Accident, Hx Seizures Endocrine Medical History: Reports: Hx Diabetes Mellitus Type 2 Renal/ Medical History: Denies: Hx Peritoneal Dialysis Musculoskeletal Medical History: Denies Hx Arthritis, Reports Hx Musculoskeletal Deformity, Reports Hx Musculoskeletal Trauma - Immunizations Immunizations up to date: Yes Hx Diphtheria, Pertussis, Tetanus Vaccination: Yes Physical Exam - Vital signs Vitals: Temp Pulse Resp BP Pulse Ox 97.5 F 79 18 137/76 H 96 02/08/18 08:44 02/08/18 08:44 02/08/18 08:44 02/08/18 08:44 02/08/18 08:44 Course - Re-evaluation Re-evalutation: Patient seen and examined vital signs reviewed. Laboratory data and imaging were ordered as appropriate for the patient's presenting symptoms and complaint, with consideration of any critical or life threatening conditions that may be associated with their obtained history and exam as noted above. Patient was treated with Toradol for the pain, and DuoNeb breathing treatment Results were reviewed when available and demonstrated negative chest x-ray and EKG The patient was re-evaluated and was stable and improved Evaluation was most consistent with muscle skeletal pain of the right chest, patient discharged with a prescription for prednisone for COPD, and given 6 doses of Platinum to take home for breakthrough pain. Patient was agreeable to plan of care and discharged home. Results were discussed with the patient at this point, after careful consideration I feel that that patient can be discharged from the emergency department, the patient was educated treatments and reasons to return to the emergency department based on their presumed diagnosis as noted above, they were advised to followup with a primary care physician in 2-3 days. Patient was agreeable to plan of care. *Note is created using voice recognition software and may contain spelling, syntax or grammatical errors. Chest X-Ray 02/08/18 09:35 IMPRESSION: NO ACUTE RADIOGRAPHIC FINDING IN THE CHEST. - Vital Signs Vital signs: Temp Pulse Resp BP Pulse Ox 97.8 F 92 18 107/84 97 02/08/18 10:57 02/08/18 10:57 02/08/18 10:57 02/08/18 10:57 02/08/18 10:57 - EKG Interpretation by Me Additional EKG results interpreted by me: EKG demonstrates sinus rhythm with ventricular rate of 80 bpm, normal axis, normal levels, there is slight T wave inversion in lead aVL,, this was seen on prior EKG from 01/13/2016, biphasic T waves noted in leads V3 through V5. Discharge - Discharge Clinical Impression: Rib pain Condition: Stable Disposition: HOME, SELF-CARE Instructions: Chest Wall Pain ([facility]) Additional Instructions: Please return to the emergency department if you have any worsening, or concern of your symptoms. Please return to the emergency department if you develop chest pain, difficulty breathing, severe abdominal pain, or ongoing vomiting. Please follow-up with your primary care physician in 2-3 days and any other recommended physicians. If prescribed, take all medications as directed. If you have any questions or concerns do not hesitate to return the emergency department for evaluation. Prescriptions: Prednisone [Deltasone 20 mg Tablet] 2 tab PO DAILY 5 Days #10 tablet Forms: Return to Work Referrals: SANTINO VILLANUEVA MD [COMMUNITY BASED STAFF] - Follow up in 3-5 days (OR YOUR PRIMARY CARE. )
[2018-02-08] MEDS ORDERED: IPRATROPIUM/ALBUTEROL 0.5-2.5 MG/3 ML AMPUL NEB ONE (09:35)
[2018-02-08] MEDS ORDERED: KETOROLAC TROMETHAMINE 60 MG/2 ML SDV IM ONE (09:36)
--- NOTE | 2018-02-08 10:02 | RADIOLOGY REPORT (SQ) ---
EXAM DESCRIPTION: CHEST 2 VIEWS COMPLETED DATE/TIME: 02/08/2018 9:51 am REASON FOR STUDY: SOB, RIB PAIN AFTER COUGH COMPARISON: 12/24/2016 EXAM PARAMETERS: NUMBER OF VIEWS: two views TECHNIQUE: Digital Frontal and Lateral radiographic views of the chest acquired. RADIATION DOSE: NA LIMITATIONS: none FINDINGS: LUNGS AND PLEURA: No opacities, masses or pneumothorax. No pleural effusion. MEDIASTINUM AND HILAR STRUCTURES: No masses or contour abnormalities. HEART AND VASCULAR STRUCTURES: Heart normal size. No evidence for failure. BONES: No acute findings. HARDWARE: None in the chest. OTHER: No other significant finding. IMPRESSION: NO ACUTE RADIOGRAPHIC FINDING IN THE CHEST. TECHNICAL DOCUMENTATION: JOB ID: [id number] [employer]- All Rights Reserved Reading location - IP/workstation name: [email or web address]
[2018-02-08] MEDS ORDERED: HYDROCODONE/ACETAMINOPHEN 5-325 MG (6 TAB/ER DISP) PO PRN (10:32)
[2018-02-08 10:58] VITALS: BP 107/84
--- NOTE | 2018-02-08 12:58 | EKG REPORT ---
SEVERITY:- ABNORMAL ECG - SINUS RHYTHM BORDERLINE T ABNORMALITIES ,MELISSA LATERAL LEADS , THIS IS NEW, COMPARED TO 01/13/16 EKG. : Confirmed by: Rigoberto Veras MD 08-Feb-2018 12:57:57
== END 2018-02-08 11:01 | disposition home or self-care (01) ==
LOC: ER 08:34
DX: R07.81 Pleurodynia (principal); R05 Cough; J44.9 Chronic obstructive pulmonary disease, unspecified; Z79.899 Other long term (current) drug therapy; F17.210 Nicotine dependence, cigarettes, uncomplicated; I10 Essential (primary) hypertension; E11.9 Type 2 diabetes mellitus without complications
CPT/HCPCS: 93005; 94640; 99284; 96372; 71046; 93010; J1885; J7620

== ENCOUNTER 2019-04-04 09:44 | Emergency (ER) | payer SELFPAY ==
[2019-04-04 09:49] VITALS: BP 138/81
[2019-04-04] MEDS ORDERED: DEXAMETHASONE SOD PHOS INJ 10 MG/1 ML VIAL IM ONE (10:08)
--- NOTE | 2019-04-04 10:08 | ER Document Report ---
HPI - HPI Time Seen by Provider: 04/04/19 10:03 Pain Level: 3 Notes: 58-year-old male with a history of borderline diabetes presents to the emergency room for a productive cough for the last week and a half, reports sinus congestion for over 2 weeks. Patient is a pack-a-day smoker for the last 30 years. Has not tried any ndcl-ebu-mtunzei medications. Worse with time, nothing makes better. Patient states he is coughing up "green and yellow phlegm" and sometimes clear productive cough. Denies fevers, chills, chest pain,palpitations, shortness of breath, dyspnea, nausea, vomiting, diarrhea, abdominal pain, hematuria,blurred vision, double vision, loss of vision, speech changes, LH, dizziness, syncope, headaches, ST, neck pain, weakness, bowel or bladder dysfunction, saddle anesthesia, numbness or tingling in bilateral upper or lower extremities equally, muscle paralysis, weakness in bilateral upper or lower extremities equally or rash. Denies IV drug use. - REPRODUCTIVE Reproductive: DENIES: : Past Medical History - General Information source: Patient - Social History Smoking Status: Current Every Day Smoker Chew tobacco use (# tins/day): No Frequency of alcohol use: None Drug Abuse: None Family History: CAD, DM, Hyperlipidemia, Hypertension, Malignancy. denies: Arthritis, COPD, CVA, Thyroid Disfunction Patient has suicidal ideation: No Patient has homicidal ideation: No - Past Medical History Cardiac Medical History: Reports: Hx Hypercholesterolemia, Hx Hypertension Denies: Hx Coronary Artery Disease, Hx Heart Attack Pulmonary Medical History: Reports: Hx COPD, Hx Pneumonia Denies: Hx Asthma, Hx Bronchitis Neurological Medical History: Denies: Hx Cerebrovascular Accident, Hx Seizures Endocrine Medical History: Reports: Hx Diabetes Mellitus Type 2 Renal/ Medical History: Denies: Hx Peritoneal Dialysis Musculoskeletal Medical History: Denies Hx Arthritis, Reports Hx Musculoskeletal Deformity, Reports Hx Musculoskeletal Trauma - Immunizations Immunizations up to date: Yes Hx Diphtheria, Pertussis, Tetanus Vaccination: Yes Vertical Provider Document - CONSTITUTIONAL Agree With Documented VS: Yes Exam Limitations: No Limitations General Appearance: WD/WN Notes: PHYSICAL EXAMINATION:reviewed vital signs by RN GENERAL: Well-appearing, well-nourished and in no acute distress. HEAD: Atraumatic, normocephalic. EYES: Pupils equal round and reactive to light, extraocular movements intact, sclera anicteric, conjunctiva are normal. ENT: Nares patent, oropharynx clear without exudates. Moist mucous membranes. NECK: Normal range of motion, supple without lymphadenopathy LUNGS: Diminished breath sounds in upper lobes, after breathing treatment, breath sounds clear to auscultation bilaterally and equal. No wheezes rales or rhonchi. HEART: Regular rate and rhythm without murmurs ABDOMEN: Soft, nontender, nondistended abdomen. No guarding, no rebound. No masses appreciated. Musculoskeletal: Normal range of motion, no pitting or edema. No cyanosis. NEUROLOGICAL: Cranial nerves grossly intact. Normal speech, normal gait. Normal sensory, motor exams PSYCH: Normal mood, normal affect. SKIN: Warm, Dry, normal turgor, no rashes or lesions noted. - INFECTION CONTROL TRAVEL OUTSIDE OF THE [place] IN LAST 30 DAYS: No Course - Re-evaluation Re-evalutation: 04/04/19 10:45 Chest x-ray was negative for pneumonia, did show emphysematous changes. Patient does feel better after DuoNeb. Vitals are all normal, afebrile. Nurse's notes reviewed. Discussed with patient that he did receive 10 mg of Decadron due for wheezing. Patient likely has a bacterial sinusitis but also a likelihood for bacterial bronchitis due to the fact that he is a pack-a-day smoker for well over 30 years, does not follow with a doctor regularly. His primary care is at divided however he is not a chance to be seen in "a very long time". After performing a Medical Screening Examination, I estimate there is LOW risk for ACUTE CORONARY SYNDROME, PULMONARY EMBOLI, RESPIRATORY FAILURE, SEPSIS OR MENINGITIS, thus I consider the discharge disposition reasonable. I have reevaluated this patient multiple times and no significant life threatening changes are noted. The patient and I have discussed the diagnosis and risks, and we agree with discharging home with close follow-up. We also discussed returning to the Emergency Department immediately if new or worsening symptoms occur. We have discussed the symptoms which are most concerning (e.g., changing or worsening pain, trouble swallowing or breathing, neck stiffness, fever) that necessitate immediate return. - Vital Signs Vital signs: Temp Pulse Resp BP Pulse Ox 98.0 F 87 18 138/81 H 96 04/04/19 09:57 04/04/19 09:57 04/04/19 09:57 04/04/19 09:57 04/04/19 09:57 Discharge - Discharge Clinical Impression: COPD exacerbation, Cough, Sinus congestion, Cough productive of purulent sputum Condition: Stable Disposition: HOME, SELF-CARE Instructions: Cough Suppressant & Expectorant Medications Additional Instructions: Chest x-ray was negative for pneumonia, did show emphysematous changes. You are given 10 mg of Decadron IM. Take Z-Clinton as directed with food. Increase oral hydration, follow-up with primary care provider within the next 24 to 48 hours. Return immediately for any new or worsening symptoms. Follow up with primary care provider, call tomorrow to make followup appointment. Prescriptions: Albuterol Sulfate [Proair Respiclick] 90 mcg IH Q4HP PRN #1 aer.pow.ba PRN Reason: Benzonatate [Tessalon Perles 100 mg Capsule] 100 mg PO Q8HP PRN #20 capsule PRN Reason: Azithromycin [Zithromax] 250 mg PO DAILY 5 Days #6 tablet Forms: Return to Work Referrals: PANKAJ ESPAÑA MD [COMMUNITY BASED STAFF] - Follow up as needed
[2019-04-04] MEDS ORDERED: IPRATROPIUM/ALBUTEROL 0.5-2.5 MG/3 ML AMPUL NEB ONE (10:09)
--- NOTE | 2019-04-04 10:40 | RADIOLOGY REPORT (SQ) ---
EXAM DESCRIPTION: CHEST 2 VIEWS COMPLETED DATE/TIME: 04/04/2019 10:32 am REASON FOR STUDY: cough, productive, [id number] smoker COMPARISON: None. EXAM PARAMETERS: NUMBER OF VIEWS: two views TECHNIQUE: Digital Frontal and Lateral radiographic views of the chest acquired. RADIATION DOSE: NA LIMITATIONS: none FINDINGS: LUNGS AND PLEURA: No opacities, masses or pneumothorax. No pleural effusion. Increased AP diameter of the thorax. MEDIASTINUM AND HILAR STRUCTURES: No masses or contour abnormalities. HEART AND VASCULAR STRUCTURES: Heart normal size. No evidence for failure. Aortic atherosclerosis. BONES: No acute findings. HARDWARE: None in the chest. OTHER: No other significant finding. IMPRESSION: Emphysematous change without evidence of acute cardiopulmonary process. TECHNICAL DOCUMENTATION: JOB ID: [id number] [employer]- All Rights Reserved Reading location - IP/workstation name: [email or web address]
== END 2019-04-04 10:52 | disposition home or self-care (01) ==
LOC: ER 09:44
DX: J44.1 Chronic obstructive pulmonary disease with (acute) exacerbation (principal); R05 Cough; R09.81 Nasal congestion; F17.210 Nicotine dependence, cigarettes, uncomplicated; I10 Essential (primary) hypertension; E11.9 Type 2 diabetes mellitus without complications
CPT/HCPCS: 71046; J1100; J7620; 94640; 96372; 99284

== ENCOUNTER 2019-04-20 12:14 | Emergency (ER) | payer SELFPAY ==
[2019-04-20] MEDS ORDERED: IPRATROPIUM/ALBUTEROL 0.5-2.5 MG/3 ML AMPUL NEB ONE ×3 (13:38→21:16)
--- NOTE | 2019-04-20 14:47 | RADIOLOGY REPORT (SQ) ---
EXAM DESCRIPTION: CHEST 2 VIEWS COMPLETED DATE/TIME: 04/20/2019 2:38 pm REASON FOR STUDY: cough/congestion COMPARISON: 04/04/2019 EXAM PARAMETERS: NUMBER OF VIEWS: two views TECHNIQUE: Digital Frontal and Lateral radiographic views of the chest acquired. RADIATION DOSE: NA LIMITATIONS: none FINDINGS: LUNGS AND PLEURA: No opacities, masses or pneumothorax. Possible emphysematous change. N o pleural effusion. MEDIASTINUM AND HILAR STRUCTURES: No masses or contour abnormalities. HEART AND VASCULAR STRUCTURES: Heart normal size. No evidence for failure. BONES: No acute findings. HARDWARE: None in the chest. OTHER: No other significant finding. IMPRESSION: No acute abnormality of the lungs. Possible emphysematous change. TECHNICAL DOCUMENTATION: JOB ID: [id number] [employer]- All Rights Reserved Reading location - IP/workstation name: [email or web address]
[2019-04-20] MEDS ORDERED: ALBUTEROL SULFATE 0.083% NEB 2.5 MG/3 ML AMPUL NEB ONE (15:07)
--- NOTE | 2019-04-20 15:08 | ER Document Report ---
HPI - HPI Time Seen by Provider: 04/20/19 13:35 Pain Level: 3 - REPRODUCTIVE Reproductive: DENIES: : Past Medical History - Social History Smoking Status: Current Every Day Smoker Chew tobacco use (# tins/day): Yes Frequency of alcohol use: None Drug Abuse: None Family History: CAD, DM, Hyperlipidemia, Hypertension, Malignancy. denies: Arthritis, COPD, CVA, Thyroid Disfunction Patient has suicidal ideation: No Patient has homicidal ideation: No - Past Medical History Cardiac Medical History: Reports: Hx Hypercholesterolemia, Hx Hypertension Denies: Hx Coronary Artery Disease, Hx Heart Attack Pulmonary Medical History: Reports: Hx COPD, Hx Pneumonia Denies: Hx Asthma, Hx Bronchitis Neurological Medical History: Denies: Hx Cerebrovascular Accident, Hx Seizures Endocrine Medical History: Reports: Hx Diabetes Mellitus Type 2 Renal/ Medical History: Denies: Hx Peritoneal Dialysis Musculoskeletal Medical History: Denies Hx Arthritis, Reports Hx Musculoskeletal Deformity, Reports Hx Musculoskeletal Trauma - Immunizations Immunizations up to date: Yes Hx Diphtheria, Pertussis, Tetanus Vaccination: Yes Vertical Provider Document - INFECTION CONTROL TRAVEL OUTSIDE OF THE [place] IN LAST 30 DAYS: No Course - Vital Signs Vital signs: Temp Pulse Resp BP Pulse Ox 98.1 F 100 18 120/68 94 04/20/19 12:32 04/20/19 12:32 04/20/19 12:32 04/20/19 12:32 04/20/19 12:32 Discharge - Discharge Clinical Impression: COPD exacerbation Condition: Stable Disposition: HOME, SELF-CARE Additional Instructions: You were seen for a COPD exacerbation. Your symptoms improved with treatment here in the emergency department. However, it is very important that you return to the emergency department immediately if you began to have worsening difficulty breathing that does not respond to your normal home nebulizers. You are also being sent home on a five-day course of steroids that you should start taking tomorrow. Please also take the antibiotics as prescribed. Please also follow closely with your primary care physician. You should eturn to emergency department if you develop fever greater than 101, persistent cough, persistent vomiting, pass out, or any other symptoms that are concerning to you. Prescriptions: Prednisone [Deltasone 20 mg Tablet] 3 tab PO DAILY 5 Days #15 tablet Doxycycline Hyclate 100 mg PO BID #14 capsule Ipratropium/Albuterol Sulfate [Duoneb 3 ml Ampul] 3 ml NEB RTQ6HP PRN #30 vial.neb PRN Reason:
[2019-04-20] MEDS ORDERED: METHYLPREDNISOLONE INJ 125 MG/2 ML SDV IV ONE (16:17)
--- NOTE | 2019-04-20 16:20 | ER Document Report ---
ED Medical Screen (RME) - General Chief Complaint: Cough Stated Complaint: COLD SYMPTOMS Time Seen by Provider: 04/20/19 13:35 Mode of Arrival: Ambulatory Information source: Patient Notes: 58-year-old male with history of COPD presenting with cough, congestion that has been ongoing for approximately 1 month. Patient reports he was seen here and given albuterol and antibiotics. Patient reports finishing the entire antibiotics and his symptoms continue to worsen. Significant wheezing noted throughout in triage. I have greeted and performed a rapid initial assessment of this patient. A comprehensive ED assessment and evaluation of the patient, analysis of test results and completion of the medical decision making process will be conducted by additional ED providers. I have specifically instructed the patient or family members with the patient to immediately return to any nursing staff should anything change in the patient's condition or with their chief complaint. TRAVEL OUTSIDE OF THE [place] IN LAST 30 DAYS: No - Related Data Allergies/Adverse Reactions: No Known Allergies Allergy (Verified 04/20/19 13:32) Past Medical History - Social History Chew tobacco use (# tins/day): Yes Frequency of alcohol use: None Drug Abuse: None - Past Medical History Cardiac Medical History: Reports: Hx Hypercholesterolemia, Hx Hypertension Denies: Hx Coronary Artery Disease, Hx Heart Attack Pulmonary Medical History: Reports: Hx COPD, Hx Pneumonia Denies: Hx Asthma, Hx Bronchitis Neurological Medical History: Denies: Hx Cerebrovascular Accident, Hx Seizures Endocrine Medical History: Reports: Hx Diabetes Mellitus Type 2 Renal/ Medical History: Denies: Hx Peritoneal Dialysis Musculoskeltal Medical History: Denies Hx Arthritis, Reports Hx Musculoskeletal Deformity, Reports Hx Musculoskeletal Trauma - Immunizations Immunizations up to date: Yes Hx Diphtheria, Pertussis, Tetanus Vaccination: Yes Physical Exam - Vital signs Vitals: Temp Pulse Resp BP Pulse Ox 98.1 F 100 18 120/68 94 04/20/19 12:32 04/20/19 12:32 04/20/19 12:32 04/20/19 12:32 04/20/19 12:32 Course - Vital Signs Vital signs: Temp Pulse Resp BP Pulse Ox 98.1 F 100 18 120/68 94 04/20/19 12:32 04/20/19 12:32 04/20/19 12:32 04/20/19 12:32 04/20/19 12:32 Doctor's Discharge - Discharge Prescriptions: Prednisone [Deltasone 20 mg Tablet] 3 tab PO DAILY 5 Days #15 tablet Doxycycline Hyclate 100 mg PO BID #14 capsule Ipratropium/Albuterol Sulfate [Duoneb 3 ml Ampul] 3 ml NEB RTQ6HP PRN #30 vial.neb PRN Reason:
[2019-04-20] MEDS: MAGNESIUM SULFATE/D5W 1 GM/100 ML RTUPB IV SCH ×2 (16:52→16:56)
[2019-04-20] MEDS ORDERED: KETOROLAC TROMETHAMINE INJ/PF 30 MG/1 ML SDV IV ONE (16:59)
[2019-04-20 17:00] LABS: ABSOLUTE BASOPHILS # (AUTO) 0.2 10^3/uL (0.0-0.2); ABSOLUTE EOSINOPHILS # (AUTO) 0.3 10^3/uL (0.0-0.6); ABSOLUTE LYMPHOCYTES (AUTO) 3.5 10^3/uL (0.5-4.7); ABSOLUTE MONOCYTES (AUTO) 0.9 10^3/uL (0.1-1.4); ABSOLUTE NEUT (AUTO) 6.8 10^3/uL (1.7-8.2); BASOPHILS % (AUTO) 1.3 % (0-2); EOSINOPHILS % (AUTO) 2.3 % (0-6); HEMATOCRIT 43.9 % (37.9-51.0); HEMOGLOBIN 15.1 g/dL (13.5-17.0); LYMPHOCYTES % (AUTO) 30.1 % (13-45); MEAN CORPUSCULAR HEMOGLOBIN 29.8 pg (27.0-33.4); MEAN CORPUSCULAR HGB CONC 34.3 g/dL (32.0-36.0); MEAN CORPUSCULAR VOLUME 87 fl (80-97); MONOCYTES % (AUTO) 7.7 % (3-13); PLATELET COUNT 329 10^3/uL (150-450); RED BLOOD COUNT 5.06 10^6/uL (4.35-5.55); RED CELL DISTRIBUTION WIDTH 14.6 % (11.5-14.0); SEGMENTED NEUTROPHILS % (AUTO) 58.6 % (42-78); TOTAL CELLS COUNTED % (AUTO) 100 %; VENOUS BLOOD BASE EXCESS -2.6 mmol/L; VENOUS BLOOD PCO2 33.6 mmHg (35-63); VENOUS BLOOD PH 7.41 (7.30-7.42); WHITE BLOOD COUNT 11.6 10^3/uL (4.0-10.5)
[2019-04-20 17:19] LABS: ALBUMIN 4.3 g/dL (3.5-5.0); ALKALINE PHOSPHATASE 118 U/L (38-126); ANION GAP 15 (5-19); ASPARTATE AMINO TRANSFERASE 19 U/L (17-59); BILIRUBIN,DIRECT 0.3 mg/dL (0.0-0.4); BILIRUBIN,TOTAL 0.3 mg/dL (0.2-1.3); BLOOD UREA NITROGEN 15 mg/dL (7-20); CALCIUM 9.5 mg/dL (8.4-10.2); CARBON DIOXIDE 22 mmol/L (22-30); CHLORIDE 99 mmol/L (98-107); GLUCOSE 170 mg/dL (75-110); TOTAL PROTEIN 7.3 g/dL (6.3-8.2)
--- NOTE | 2019-04-20 20:01 | ER Document Report ---
ED General - General Chief Complaint: Cough Stated Complaint: COLD SYMPTOMS Time Seen by Provider: 04/20/19 13:35 Mode of Arrival: Ambulatory TRAVEL OUTSIDE OF THE [place] IN LAST 30 DAYS: No - HPI Notes: 58M h/o COPD dx, continued smoker, presents for 2nd time this month for increase in his baseline cough, wheezing, and sob. was seen, d/c 2 wks ago (04/04/19) from our ED, having improved s/p im decadron, neb duoneb, d/c w/ 5day z pack and sx otc med instructions, and had had neg 2v CXR on that day. he completed z pack as instructed he says. but in last few days his sx have returned now to the point he's feeling slightly sob even at rest and definitely w/ minimal exertion around house. he has inhaler albuterol at home which hasn't been helping he says. denies any immobility or other historical RFs for VTE. denies f/c/s. no exposures. no orthopnea, pnd, no chest pain. no (near) syncope or swelling anywhere. no difficulty swallowing/talking. he and still dailly smokers. - Related Data Allergies/Adverse Reactions: No Known Allergies Allergy (Verified 04/20/19 13:32) Past Medical History - General Information source: Patient, Relative - Social History Smoking Status: Current Every Day Smoker Chew tobacco use (# tins/day): Yes Frequency of alcohol use: None Drug Abuse: None Lives with: Spouse/Significant other Family History: CAD, DM, Hyperlipidemia, Hypertension, Malignancy. denies: Arthritis, COPD, CVA, Thyroid Disfunction Patient has suicidal ideation: No Patient has homicidal ideation: No - Past Medical History Cardiac Medical History: Reports: Hx Hypercholesterolemia, Hx Hypertension Denies: Hx Coronary Artery Disease, Hx Heart Attack Pulmonary Medical History: Reports: Hx COPD, Hx Pneumonia Denies: Hx Asthma, Hx Bronchitis Neurological Medical History: Denies: Hx Cerebrovascular Accident, Hx Seizures Endocrine Medical History: Reports: Hx Diabetes Mellitus Type 2 Renal/ Medical History: Denies: Hx Peritoneal Dialysis Musculoskeletal Medical History: Denies Hx Arthritis, Reports Hx Musculoskeletal Deformity, Reports Hx Musculoskeletal Trauma - Immunizations Immunizations up to date: Yes Hx Diphtheria, Pertussis, Tetanus Vaccination: Yes Review of Systems - Review of Systems Constitutional: See HPI, Malaise, Recent illness. denies: Chills, Diaphoresis, Fever, Weight gain, Weight loss EENT: No symptoms reported. denies: Eye pain, Eye discharge, Blurred vision, Tearing, Double vision, Ear pain, Ear discharge, Nose pain, Nose congestion, Throat pain, Difficulty swallowing, Throat swelling, Mouth pain, Mouth swelling, Dental problem, Vertigo Cardiovascular: No symptoms reported, See HPI. denies: Palpitations, Heart racing, Orthopnea Respiratory: See HPI, Short of breath, Sputum, Wheezing. denies: Hurts to breathe, Hemoptysis, Stridor Gastrointestinal: No symptoms reported Genitourinary: No symptoms reported Male Genitourinary: No symptoms reported Musculoskeletal: No symptoms reported Skin: No symptoms reported Hematologic/Lymphatic: No symptoms reported Neurological/Psychological: No symptoms reported Physical Exam - Vital signs Vitals: Temp Pulse Resp BP Pulse Ox 98.1 F 100 18 120/68 94 04/20/19 12:32 04/20/19 12:32 04/20/19 12:32 04/20/19 12:32 04/20/19 12:32 Interpretation: Tachycardic, Hypoxic, Tachypneic. No: Hypotensive, Hypertensive - General General appearance: Alert, Other - nontoxic appearing In distress: Mild - at rest is tachypneic lower 20s, on RA had been low 90s. mid 90s on 1L nc. - HEENT Head: Normocephalic, Atraumatic Eyes: Normal. No: Pale conjunctiva, Scleral icterus Conjunctiva: No: Injected, Purulent discharge Pupils: PERRL Ears: Normal External canal: Normal Nasal: Normal Mouth/Lips: Normal Mucous membranes: Dry Pharynx: Normal. No: Erythema, Exudate, Tonsillar hypertrophy, Uvular edema, Potential airway comprom. Neck: Normal, Supple. No: Lymphadenopathy, Meningismus, Subcutaneous emphysema, Thyromegally - Respiratory Respiratory status: Respiratory distress, Tachypnea. No: Depressed res pirations, Tripod position Chest status: Nontender. No: Pain on movement, Pain with cough, Wounds Breath sounds: Decreased air movement, Nonproductive cough, Productive cough, Wheezing - wheeze audible in all phases of respiration few hrs s/p 1g mg gtt, initial/most recent duoneb Rx. Chest palpation: Normal. No: Purulent sputum - Cardiovascular Rhythm: Regular Heart sounds: Normal auscultation Murmur: No - Abdominal Inspection: Normal Distension: No distension Bowel sounds: Normal Tenderness: Nontender Organomegaly: No organomegaly - Back Back: Normal, Nontender - Extremities General upper extremity: Normal inspection, Nontender, Normal color, Normal ROM, Normal temperature General lower extremity: Normal inspection, Nontender, Normal color, Normal ROM, Normal temperature, Normal weight bearing. No: Erica's sign - Neurological Neuro grossly intact: Yes Cognition: Normal Orientation: AAOx4 Salo Coma Scale Eye Opening: Spontaneous Anderson Coma Scale Verbal: Oriented Anderson Coma Scale Motor: Obeys Commands Anderson Coma Scale Total: 15 Speech: Normal Motor strength normal: LUE, RUE, LLE, RLE Sensory: Normal - Psychological Associated symptoms: Normal affect, Normal mood - Skin Skin Temperature: Warm Skin Moisture: Dry Skin Color: Normal Course - Re-evaluation Re-evalutation: at time of my initial exam of pt, was few hrs s/p 1g mg gtt, initial/most recent duoneb Rx. had audible wheeze in all phases of respiration. gave 125 solumedrol, and 3 more back to back duonebs. btw each of these succesive nebs, phases of ventilation.aeration opened up further and wheeze ultiamtely improved some though was still present end of exp phase after these rx's. he felt markedly better though and his cough, wheeze and sob had markedly decreased he said. on exam his tachycardia, tachypnea and inc wob had resolved/significantly improved. i discussed w/ he and i think it may have been that a longer duration of steroid is warranted. he and i, through shared decision making, agreed if he was able to ambulate around ED a few times w/o distress or evidence of hypoxia, and was able to fill few days of prednisone i'd write today i was ok w/ him going home understanding that it was possible he might still get worse or not improve, in the next day or so, and certainly if he worsened he would have to return/seek medical attn. therefore d/c w/ meds and understanding of plan per below in d/c instructions. also we discussed that still, on CXR no evidence of PNA which went along w/ clinical picture of no fevers, etc. i spent a number of minutes discussing w/ both he and , that his lungs will wihtout a doubt cont to worsen if he cont to expose himself to smoke smoking cigs himself or by his doing it around him or inside/even outside the house though the latter much less quickly/prominently. i went over that he and his pcp can come up w/ a defined plan to get this out of his life since he can actually recover lung function if he does this, - Vital Signs Vital signs: Temp Pulse Resp BP Pulse Ox 97.4 F 98 18 147/71 H 92 04/20/19 21:57 04/20/19 21:57 04/20/19 21:57 04/20/19 21:57 04/20/19 21:57 - Laboratory Result Diagrams: 04/20/19 16:45 04/20/19 16:45 Laboratory results interpreted by me: 04/20/19 04/20/19 04/20/19 16:45 16:45 16:45 WBC 11.6 H RDW 14.6 H VBG pCO2 33.6 L Sodium 136.2 L Glucose 170 H Discharge - Discharge Clinical Impression: COPD exacerbation, Smoker, Encounter for smoking cessation counseling Condition: Fair Disposition: HOME, SELF-CARE Prescriptions: Dextromethorphan HBr [Robitussin] 30 mg PO Q6HP PRN 3 Days #18 capsule PRN Reason: Cough Prednisone [Deltasone] 60 mg PO DAILY 5 Days #15 tablet Prednisone [Deltasone 20 mg Tablet] 3 tab PO DAILY 5 Days #15 tablet Doxycycline Hyclate 100 mg PO BID #14 capsule Ipratropium/Albuterol Sulfate [Duoneb 3 ml Ampul] 3 ml NEB RTQ6HP PRN #30 vial.neb PRN Reason: Albuterol Sulfate [Proair Hfa Inhalation Aerosol 8.5 gm Mdi] 4 puff IH Q4 PRN #1 mdi PRN Reason: Shortness Of Breath
[2019-04-20] MEDS: IPRATROPIUM/ALBUTEROL 0.5-2.5 MG/3 ML AMPUL NEB PRN ×2 (20:20→20:40)
[2019-04-20 21:57] VITALS: BP 147/71
== END 2019-04-20 21:59 | disposition home or self-care (01) ==
LOC: ER 12:14
DX: J44.1 Chronic obstructive pulmonary disease with (acute) exacerbation (principal); R05 Cough; R06.82 Tachypnea, not elsewhere classified; R53.81 Other malaise; F17.210 Nicotine dependence, cigarettes, uncomplicated; Z79.899 Other long term (current) drug therapy; I10 Essential (primary) hypertension; E11.9 Type 2 diabetes mellitus without complications
CPT/HCPCS: 94640 ×2; 99283; 96375; 96365; 36415; 85025; 80053; 82803; 71046; J2930; J1885; J3475; J7620

== ENCOUNTER 2019-07-11 08:38 | Emergency (ER) | payer BC ==
[2019-07-11 08:46] VITALS: BP 114/72
--- NOTE | 2019-07-11 09:21 | ER Document Report ---
ED Medical Screen (RME) - General Chief Complaint: Flu Symptoms Stated Complaint: SHORTNESS OF BREATH/COUGH/FEVER Time Seen by Provider: 07/11/19 09:16 Mode of Arrival: Ambulatory Information source: Patient Notes: 58-year-old male presented to ED for cough cold congestion sore throat feeling weak. He states he had a cough for about a week but he started feeling bad Wednesday. He is afebrile at this time. He is alert oriented respirations regular nonlabored. He does have a history of COPD. Does have a little bit of nausea but no vomiting. Has had a intermittent fever at home but here is 97 9 at this moment. States his last Tylenol was at 630 this morning. TRAVEL OUTSIDE OF THE [place] IN LAST 30 DAYS: No - HPI Onset: Last week Onset/Duration: Gradual Quality of pain: Achy Severity: Moderate Pain Level: 3 Associated Symptoms: Body/muscle aches, Nausea, Rhinorrhea, Sinus pain/drainage, Sore throat Exacerbated by: Walking, Coughing Relieved by: Denies Similar symptoms previously: Yes Recently seen / treated by doctor: Yes - Related Data Smoking: Cigarettes - Pack a day Frequency of alcohol use: None Drug Abuse: None Allergies/Adverse Reactions: No Known Allergies Allergy (Verified 04/20/19 13:32) Home Medications: Atorvastatin, Lisinopril, Proair Past Medical History - General Information source: Patient - Social History Cigarette use (# per day): Yes Frequency of alcohol use: None Drug Abuse: None Lives with: Family Family history: Reviewed & Not Pertinent - Past Medical History Cardiac Medical History: Reports: Hx Hypercholesterolemia, Hx Hypertension Pulmonary Medical History: Reports: Hx COPD, Hx Pneumonia EENT Medical History: Reports: None Endocrine Medical History: Reports: None Renal/ Medical History: Reports: None Malignancy Medical History: Reports None GI Medical History: Reports: None Musculoskeltal Medical History: Reports Hx Musculoskeletal Deformity, Reports Hx Musculoskeletal Trauma Skin Medical History: Reports None Psychiatric Medical History: Reports: None Traumatic Medical History: Reports: None Infectious Medical History: Reports: None Surgical Hx: Negative Past Surgical History: Reports: None - Immunizations Immunizations up to date: Yes Hx Diphtheria, Pertussis, Tetanus Vaccination: Yes Review of Systems - Review of Systems Constitutional: No symptoms reported EENT: Ear pain, Nose congestion, Nose discharge, Sinus pressure, Sinus discharge, Throat pain Cardiovascular: No symptoms reported Respiratory: Cough Gastrointestinal: No symptoms reported Genitourinary: No symptoms reported Male Genitourinary: No symptoms reported Musculoskeletal: No symptoms reported Skin: No symptoms reported Hematologic/Lymphatic: No symptoms reported Neurological/Psychological: Weakness -: Yes All other systems reviewed and negative Physical Exam - Vital signs Vitals: Temp Pulse Resp BP Pulse Ox 97.9 F 111 H 20 114/72 94 07/11/19 08:42 07/11/19 08:42 07/11/19 08:42 07/11/19 08:42 07/11/19 08:42 Interpretation: Normal - General General appearance: Appears well, Alert - HEENT Head: Normocephalic, Atraumatic Eyes: Normal Pupils: PERRL - Respiratory Respiratory status: No respiratory distress Chest status: Nontender Breath sounds: Normal Chest palpation: Normal - Cardiovascular Rhythm: Regular Heart sounds: Normal auscultation Murmur: No - Abdominal Inspection: Normal Distension: No distension Bowel sounds: Normal Tenderness: Nontender Organomegaly: No organomegaly - Back Back: Normal, Nontender - Extremities General upper extremity: Normal inspection, Nontender, Normal color, Normal ROM, Normal temperature General lower extremity: Normal inspection, Nontender, Normal color, Normal ROM, Normal temperature, Normal weight bearing. No: Erica's sign - Neurological Neuro grossly intact: Yes Cognition: Normal Orientation: AAOx4 Salo Coma Scale Eye Opening: Spontaneous Payne Coma Scale Verbal: Oriented Payne Coma Scale Motor: Obeys Commands Payne Coma Scale Total: 15 Speech: Normal Motor strength normal: LUE, RUE, LLE, RLE Sensory: Normal - Psychological Associated symptoms: Normal affect, Normal mood - Skin Skin Temperature: Warm Skin Moisture: Dry Skin Color: Normal Course - Re-evaluation Re-evalutation: 07/11/19 20:35 After performing a Medical Screening Examination, I estimate there is LOW risk for ACUTE CORONARY SYNDROME, RESPIRATORY FAILURE, SEPSIS OR MENINGITIS, thus I consider the discharge disposition reasonable. I have reevaluated this patient multiple times and no significant life threatening changes are noted. The patient and I have discussed the diagnosis and risks, and we agree with discharging home with close follow-up. We also discussed returning to the Emergency Department immediately if new or worsening symptoms occur. We have discussed the symptoms which are most concerning (e.g., changing or worsening pain, trouble swallowing or breathing, neck stiffness, fever) that necessitate immediate return. - Vital Signs Vital signs: Temp Pulse Resp BP Pulse Ox 97.8 F 111 H 20 114/72 94 07/11/19 10:51 07/11/19 08:42 07/11/19 08:42 07/11/19 08:42 07/11/19 08:42 - Laboratory Laboratory results interpreted by me: 07/11/19 09:27 Urine Protein 100 H Urine Ketones TRACE H Urine Urobilinogen 2.0 H Doctor's Discharge - Discharge Clinical Impression: URI (upper respiratory infection) Qualifiers: URI type: unspecified viral URI Qualified Code(s): J06.9 - Acute upper respiratory infection, unspecified Condition: Stable Disposition: HOME, SELF-CARE Additional Instructions: UPPER RESPIRATORY ILLNESS: You have a viral infection of the respiratory passages -- a "cold." This common infection causes nasal congestion, drainage, and often sore throat and cough. It is highly contagious. The disease usually lasts about 10 to 14 days. There is no "cure" for the viral infection -- it must run its course. If there is a complication, such as bacterial infection in the nose, sinuses, middle ear, or bronchial tubes, antibiotics may be required. The antibiotics won't affect the virus. Drink plenty of fluids. A humidifier may help. An expectorant medication or decongestant may make you more comfortable. Use acetaminophen or ibuprofen for fever or aches. See the doctor if fever persists over two days, if there is any significant worsening of your symptoms, or if you simply fail to improve as expected. You have been recommended treatment with Claritin 10 mg Sudafed 30 mg and Mucinex 600 mg. These are all gnph-wwh-inympie medications for cough cold congestion. You do need to call the go to the pharmacist to get the Sudafed from behind the counter please get a little red pills they are more effective. You could also use Flonase which is vshq-ooa-[id number] 1 spray each nostril twice a day. You could also use salt soda solution gargles. These will help to remove the drainage from the back your throat. Chloraseptic spray was jgty-[id number] that will also help with your sore throat. Salt and soda solution gargle 1 quart of water 1 tablespoon of salt 1 teaspoon of baking soda Mixed 3 ingredients together and boil for 1 minute Placed in a covered quart jar Use 1/2 ounce of cold solution to gargle 3 times a day USE OF ACETAMINOPHEN (Tylenol): Acetaminophen may be taken for pain relief or fever control. It's much safer than aspirin, offering a wider range of "safe" dosages. It is safe during . Some brand names are Tylenol, Panadol, Datril, Anacin 3, Tempra, and Liquiprin. Acetaminophen can be repeated every four hours. The following are maximum recommended dosages: >89 pounds or adults 650 mg to 900 mg Acetaminophen can be repeated every four hours. Maximum dose not to exceed 4000 mg a day. SMOKING: If you smoke, you should stop smoking. The tar and chemicals in cigarette smoke are harmful. Smoking has been shown to cause: emphysema chronic bronchitis lung cancer mouth and throat cancer stomach and pancreas cancer premature aging defects In addition, smoking increases ear and lung infections in children of smokers. FOLLOW-UP CARE: If you have been referred to a physician for follow-up care, call the physicians office for an appointment as you were instructed or within the next two days. If you experience worsening or a significant change in your symptoms, notify the physician immediately or return to the Emergency Department at any time for re-evaluation. Forms: Smoking Cessation Education, Return to Work
[2019-07-11 09:49] LABS: APPEARANCE,URINE SLIGHTLY-CLOUDY; BILIRUBIN,URINE NEGATIVE (NEGATIVE); GLUCOSE, URINE NEGATIVE (NEGATIVE); KETONES,URINE TRACE mg/dL (NEGATIVE); LEUKOCYTE ESTERASE,URINE NEGATIVE (NEGATIVE); NITRITE,URINE NEGATIVE (NEGATIVE); PROTEIN,URINE 100 mg/dL (NEGATIVE); URINE SPECIFIC GRAVITY 1.027
[2019-07-11 09:51] LABS: COLOR,URINE DARK YELLOW
[2019-07-11 10:09] LABS: A TYPE INFLUENZA AG NEGATIVE (NEGATIVE); B INFLUENZA AG NEGATIVE (NEGATIVE)
--- NOTE | 2019-07-11 10:19 | RADIOLOGY REPORT (SQ) ---
EXAM DESCRIPTION: CHEST SINGLE VIEW COMPLETED DATE/TIME: 07/11/2019 8:44 am REASON FOR STUDY: chest congestion COMPARISON: 04/20/2019 EXAM PARAMETERS: NUMBER OF VIEWS: One view. TECHNIQUE: Single frontal radiographic view of the chest acquired. RADIATION DOSE: NA LIMITATIONS: None. FINDINGS: LUNGS AND PLEURA: Lungs are hyperinflated. No focal consolidation or pleural effusion. N o pneumothorax. MEDIASTINUM AND HILAR STRUCTURES: No masses. Contour normal. HEART AND VASCULAR STRUCTURES: Heart normal in size. Normal vasculature. BONES: No acute findings. HARDWARE: None in the chest. OTHER: No other significant finding. IMPRESSION: No acute cardiopulmonary disease. Hyperinflated lungs which can be seen with obstructiv e lung disease. TECHNICAL DOCUMENTATION: JOB ID: [id number] 2010 [employer]- All Rights Reserved Reading location - IP/workstation name: [email or web address]
== END 2019-07-11 10:51 | disposition home or self-care (01) ==
LOC: ER 08:38
DX: J06.9 Acute upper respiratory infection, unspecified (principal); R06.02 Shortness of breath; R50.9 Fever, unspecified; R53.1 Weakness; R11.0 Nausea; F17.210 Nicotine dependence, cigarettes, uncomplicated; E78.00 Pure hypercholesterolemia, unspecified; I10 Essential (primary) hypertension; J44.9 Chronic obstructive pulmonary disease, unspecified
CPT/HCPCS: 71045; 81001; 87070; 87804; 87880; 99283

== ENCOUNTER 2019-09-22 14:39 | Emergency (ER) | payer BC ==
[2019-09-22] MEDS ORDERED: LIDOCAINE 1% INJ-PF (10 MG/ML) 30 ML SDV INJ ONE (14:55)
--- NOTE | 2019-09-22 15:04 | ER Document Report ---
ED Oral Problem - General Chief Complaint: Toothache Stated Complaint: TOOTH PAIN, MOUTH SWELLING Time Seen by Provider: 09/22/19 14:55 Mode of Arrival: Ambulatory Information source: Patient Notes: 58-year-old male presented to ED for complaint of dental pain to the left lower jaw. He has an abscess beside tooth #18, 19, and 20. He states is been there since about Wednesday or Wednesday. He states it is giving him a headache. He is alert oriented respirations regular and unlabored speaking in full sentences. He states he does smoke a pack and a half a day does not drink does not use rosenda gs. States he has a past medical history of high blood pressure cholesterol and COPD. He is alert oriented respirations regular and unlabored speaking in full sentences. He does need to have multiple teeth pulled due to multiple cavities. TRAVEL OUTSIDE OF THE [place] IN LAST 30 DAYS: No - HPI Patient complains to provider of: Swelling of jaw, Toothache Onset: Last week Onset: Gradual Quality of pain: Sharp, Throbbing Severity: Moderate Pain Level: 4 Associated symptoms: Toothache Worsened by: Cold Relieved by: Nothing Similar symptoms previously: Yes Recently seen / treated by doctor/dentist: No - Related Data Allergies/Adverse Reactions: No Known Allergies Allergy (Verified 09/22/19 14:52) Home Medications: htn. cholesterol. copd Past Medical History - General Information source: Patient - Social History Smoking Status: Current Every Day Smoker Chew tobacco use (# tins/day): No Frequency of alcohol use: None Drug Abuse: None Family History: CAD, DM, Hyperlipidemia, Hypertension, Malignancy. denies: Arthritis, COPD, CVA, Thyroid Disfunction Patient has homicidal ideation: No - Past Medical History Cardiac Medical History: Reports: Hx Hypercholesterolemia, Hx Hypertension Pulmonary Medical History: Reports: Hx COPD, Hx Pneumonia EENT Medical History: Reports: None Neurological Medical History: Reports: None Endocrine Medical History: Reports: None Renal/ Medical History: Reports: None Malignancy Medical History: Reports None GI Medical History: Reports: None Musculoskeletal Medical History: Reports Hx Musculoskeletal Deformity, Reports Hx Musculoskeletal Trauma Skin Medical History: Reports None Psychiatric Medical History: Reports: None Traumatic Medical History: Reports: None Infectious Medical History: Reports: None Surgical Hx: Negative Past Surgical History: Reports: None - Immunizations Immunizations up to date: Yes Hx Diphtheria, Pertussis, Tetanus Vaccination: Yes Review of Systems - Review of Systems Constitutional: No symptoms reported EENT: No symptoms reported, Mouth pain, Mouth swelling, Dental problem Cardiovascular: No symptoms reported Respiratory: No symptoms reported Gastrointestinal: No symptoms reported Genitourinary: No symptoms reported Male Genitourinary: No symptoms reported Musculoskeletal: No symptoms reported Skin: No symptoms reported Hematologic/Lymphatic: No symptoms reported Neurological/Psychological: No symptoms reported -: Yes All other systems reviewed and negative Physical Exam - Vital signs Vitals: Temp Pulse Resp BP Pulse Ox 98.8 F 113 H 21 H 133/96 H 95 09/22/19 14:43 09/22/19 14:43 09/22/19 14:43 09/22/19 14:43 09/22/19 14:43 Interpretation: Normal - General General appearance: Appears well, Alert - HEENT Head: Normocephalic, Atraumatic Eyes: Normal Pupils: PERRL Sinus: Normal Nasal: Normal Mouth/Lips: Normal Mucous membranes: Normal Teeth diagram: 1 - Dental abscess all of these teeth are decayed. Pharynx: Normal Neck: Anterior cervical chain - Respiratory Respiratory status: No respiratory distress Chest status: Nontender Breath sounds: Normal Chest palpation: Normal - Cardiovascular Rhythm: Regular Heart sounds: Normal auscultation Murmur: No - Abdominal Inspection: Normal Distension: No distension Bowel sounds: Normal Tenderness: Nontender Organomegaly: No organomegaly - Back Back: Normal, Nontender - Extremities General upper extremity: Normal inspection, Nontender, Normal color, Normal ROM, Normal temperature General lower extremity: Normal inspection, Nontender, Normal color, Normal ROM, Normal temperature, Normal weight bearing. No: Erica's sign - Neurological Neuro grossly intact: Yes Cognition: Normal Orientation: AAOx4 Salo Coma Scale Eye Opening: Spontaneous Lyndon Coma Scale Verbal: Oriented Salo Coma Scale Motor: Obeys Commands Salo Coma Scale Total: 15 Speech: Normal Motor strength normal: LUE, RUE, LLE, RLE Sensory: Normal - Psychological Associated symptoms: Normal affect, Normal mood - Skin Skin Temperature: Warm Skin Moisture: Dry Skin Color: Normal Course - Re-evaluation Re-evalutation: 09/22/19 18:46 Left jaw was anesthetized with 1% lidocaine. His dental abscess to the lower left jaw was then I indeed with an 18-gauge needle with return of a large amount of purulent foul-smelling drainage. He then gargled with warm water until the purulent drainage was removed. Patient was treated with clindamycin p.o. and viscous lidocaine to the area. He was discharged home with prescription for clindamycin. He was also sent home with a syringe of viscous lidocaine to use every 4 hours to the area and a [place] dispense pack for pain. He was instructed that he needs to follow-up with a dentist as soon as possible. He was instructed to please return to the ED immediately for any increasing swelling increasing pain or any fevers. Patient verbalized understanding and agreement with treatment plan and patient was discharged home. - Vital Signs Vital signs: Temp Pulse Resp BP Pulse Ox 98.8 F 107 H 21 H 147/93 H 95 09/22/19 14:53 09/22/19 15:23 09/22/19 14:43 09/22/19 15:23 09/22/19 14:43 Discharge - Discharge Clinical Impression: Pain due to dental caries, Dental abscess Condition: Stable Disposition: HOME, SELF-CARE Additional Instructions: ABSCESS: You have an abscess (boil). This a pus-forming infection, usually due to staph. Some boils may be left to drain on their own, but most require lancing. From the time the tender lump first appears, it may be three or four days before the abscess is ready to vane. Local heat and rest help at this stage of treatment. An antibiotic may prevent spread of the infection. Once the abscess is opened, packing may be placed into it. This is done so pus is not sealed inside by premature closure of the cavity. The packing will be removed at your follow-up visit or you may be advised to remove it yourself at home. Sometimes this packing must be replaced a few times during healing. The wound will heal with surprisingly little scar. Depending on the size and location of an abscess, healing can take one to four weeks. You may shower and wash the area around the incision site two or three times a day. Antibiotics may be prescribed, but are usually not necessary after an abscess has been drained. If you develop fever, chills, worsening pain, or increasing swelling in the area, call the doctor or return immediately. POST INCISION AND DRAINAGE: You have had an incision made to allow drainage of an abscess. The incision must remain open so that pus and debris can drain from the wound. If the abscess cavity is large, packing is placed. This keeps the tissues from collapsing and trapping pus inside, while the body shrinks the cavity. The packing may need to be replaced every day or two. The physician will instruct you on the packing. Keep a bulky dressing over the area. Replace it if it becomes saturated with blood or pus. Do not disturb the packing (if present). You may shower and cleanse the area with gentle soap and warm water two or three times a day. Local warmth may be soothing, and may promote faster healing. Return if you develop high fever or chills, or if you note spreading redness, increasing swelling, or increasing tenderness. TOOTHACHE: Your pain is due to dental decay. The tooth must be repaired in order for you to feel better. You will, therefore, be referred to a dentist. We do not have dentists on the staff at [facility]. Severe swelling or drainage around a tooth usually means a dental abscess. This also requires evaluation and treatment by the dentist, but antibiotics may be prescribed while awaiting dental treatment. You should be rechecked immediately if you develop major swelling of the face, increasing pain, a lump in the jaw or gums, headache, difficulty swallowing, or fever. ORAL NARCOTIC MEDICATION: You have been given a prescription for pain control. This medication is a narcotic. It's best taken with food, as nausea can result if taken on an empty stomach. Don't operate machinery or drive within six hours of taking this medication. Do not combine this medicine with alcohol, or with any medication which can cause sedation (such as cold tablets or sleeping pills) unless you get permission from the physician. Narcotics tend to cause constipation. If possible, drink plenty of fluids and eat a diet high in fiber and fruits. Please be aware that prescription narcotics also have the potential for abuse. People become addicted to these medications because of the general sense of wellbeing that they induce. This feeling along with a significant reduction in tension, anxiety, and aggression provides a stimulating seductive quality to these drugs. Once your pain is under control, we encourage you to discard your unused narcotics. Given you a syringe with viscous lidocaine and. This lidocaine is to put a small amount on your finger and applied to the area that is painful. You can do this every 4 hours as needed for pain. Please take your antibiotic until completed. CLINDAMYCIN: You have been given a prescription for the antibiotic clindamycin. It is often prescribed for infections in the mouth, such as dental infections or abscesses, and for skin infections due to MRSA. It's important that you take all the medication, unless instructed otherwise by your physician. Failure to complete the entire course can result in relapse of your condition. Common side effects of antibiotics include nausea, intestinal cramping, or diarrhea. Women may develop vaginal yeast infections, and babies can get yeast (thrush) in the mouth following the use of antibiotics. Contact your physician if you develop significant side effects from this medication. Allergy to this antibiotic can result in hives, wheezing, faintness, or itching. If symptoms of allergy occur, stop the medication and call the doctor. FOLLOW-UP CARE: You have been referred for follow-up care to the dentists listed below. Call the dentists office for an appointment as you were instructed or within the next two days. If you experience worsening or a significant change in your symptoms, notify the physician immediately or return to the Emergency Department at any time for re-evaluation. [facility] [address] [place] [address] [facility] [place] [address] [facility] [address] [facility] [address] [place] [facility] [address] [email or web address] [address] [place] [address] Wednesday- 8:00am to 5:00 pm [facility] other [facility]. Charges based on income and family size and accepts Medicare, Medicaid, and Insurances Will pull molars [facility] [address] Hours of Operation 8:00 am - 4:30 pm weekdays The following dental offices accept Medicaid: [facility] [address]cdan[address] Dr. Uriostegui Dr. Garza Lew Pineda, [place], and [place] oral surgery Dr. Soria ([place]) Dr. Porras ([place]) [facility] Drs. Chaudhari and Jason ([place]) Dr. Kc ([place]) [facility] Dr. Aguilar ([place]) Drs. Silva and ([place]) Medicaid Care Line Prescriptions: Clindamycin HCl 300 mg PO Q6 #28 capsule Forms: Elevated Blood Pressure
[2019-09-22] MEDS ORDERED: CLINDAMYCIN HCL 150 MG CAPSULE PO ONE (15:07)
[2019-09-22] MEDS ORDERED: LIDOCAINE 2% VISCOUS SOLN 15 ML UDCUP PO ONE (15:07)
[2019-09-22] MEDS ORDERED: HYDROCODONE/ACETAMINOPHEN 5-325 MG (6 TAB/ER DISP) PO PRN (15:08)
[2019-09-22 15:23] VITALS: BP 147/93
== END 2019-09-22 15:23 | disposition home or self-care (01) ==
LOC: ER 14:39
DX: K04.7 Periapical abscess without sinus (principal); K02.9 Dental caries, unspecified; K08.89 Other specified disorders of teeth and supporting structures; I10 Essential (primary) hypertension; J44.9 Chronic obstructive pulmonary disease, unspecified; E78.00 Pure hypercholesterolemia, unspecified; F17.200 Nicotine dependence, unspecified, uncomplicated; Z79.899 Other long term (current) drug therapy
CPT/HCPCS: 99282; 41800; J3490 ×2

== ENCOUNTER → 2020-01-03 | Outpatient (CLI) | payer BC ==
[2020-01-03 12:54] VITALS: BP 135/74
--- NOTE | 2020-01-03 12:54 | ER RDC ASSESSMENT REPORT ---
Intake - In the Last 14 days Have you traveled outside [place]?: No Have you been in close contact with someone CONFIRMED: Yes Worked in Healthcare?: No - Symptoms Subjective Fever([place] feverish): No Chills: No Muscule Aches: No Runny Nose: No Sore Throat: No Cough (New or worsening chronic cough): No Shortness of breath: No Nausea or Vomiting: No Headache: No Abdominal Pain: No Diarrhea(3 or more loose stools in last 24 hours): No - Do you have any of the following Chronic lung disease: Asthma or emphysema or COPD: Yes Chronic Lung Disease Comment: History of COPD. Cystic Fibrosis: No Diabetes: Yes Diabetes Comment: Borderline High Blood Pressure: Yes Cardiovascular Disease: Yes Chronic Kidney Disease: No Chronic Liver Disease: No Chronic blood disorder like Sickle Cell Disease: No Weak immune system due to disease or medication: No Neurologic condition that limits movement: No Developmental delay - Moderate to Severe: No Recent (within past 2 weeks) or current : No Morbid Obesity (>100 pounds over ideal weight): No Obesity Comment: Height 5 feet 8 inches weight 160 pounds. - Objective Temperature: 98.0 F Pulse Rate: 101 Respiratory Rate: 20 Blood Pressure: 135/74 O2 Sat by Pulse Oximetry: 97 Objective: Given above, testing performed: If Testing Performed: Test Specimen Type Sent to General - General Information source: Patient Notes: Patient here at [facility] for cover testing. Patient coworker had tested positive ov er the weekend with symptoms starting Wednesday patient saw coworker last patient remains asymptomatic at this time. Patient sees Dr. Tanner for primary care. - Related Data Allergies/Adverse Reactions: No Known Allergies Allergy (Verified 09/22/19 14:52) Past Medical History - General Information source: Patient - Social History Smoking Status: Current Every Day Smoker - Smokes a pack a day Smoking Education Provided: Yes - Quit smoking Family History: CAD, DM, Hyperlipidemia, Hypertension, Malignancy. denies: Arthritis, COPD, CVA, Thyroid Disfunction - Past Medical History Cardiac Medical History: Reports: Hx Hypercholesterolemia, Hx Hypertension Denies: Hx Coronary Artery Disease, Hx Heart Attack Pulmonary Medical History: Reports: Hx COPD, Hx Pneumonia Denies: Hx Asthma, Hx Bronchitis Neurological Medical History: Denies: Hx Cerebrovascular Accident, Hx Seizures Endocrine Medical History: Reports: Hx Diabetes Mellitus Type 2 Renal/ Medical History: Denies: Hx Peritoneal Dialysis Musculoskeletal Medical History: Denies Hx Arthritis, Reports Hx Musculoskeletal Deformity, Reports Hx Musculoskeletal Trauma Psychiatric Medical History: Denies: Hx Depression Physical Exam - General General appearance: Appears well, Alert In distress: None Notes: PHYSICAL EXAMINATION: GENERAL: Well-appearing and in no acute distress. HEAD: Atraumatic, normocephalic. EYES: sclera anicteric, conjunctiva are normal. ENT: nares patent. Moist mucous membranes. NECK: Normal range of motion, supple without lymphadenopathy LUNGS: CTAB and equal. No wheezes rales or rhonchi. Faint expiratory upper left wheeze noted, cleared with cough. Lung sounds clear resp even and unlabored. HEART: Regular rate and rhythm without murmurs ABDOMEN: Soft, nontender, normal bowel sounds, no guarding. EXTREMITIES: Normal range of motion, no pitting edema. No cyanosis. BACK: No midline tenderness, no step-off or deformity. No CVA tenderness NEUROLOGICAL: Cranial nerves grossly intact. Normal speech. Normal gait. PSYCH: Normal mood, normal affect. SKIN: Warm, Dry, normal turgor, no rashes or lesions noted Diagnostic Results Laboratory Results: Pending cover testing results. Patient provided instructions regarding code to include: As a person under investigation for Covid 19, the [place] department of Health and Human Services, division of public health advises you to adhere to the following guidance until your test results are reported to you. If your test result is positive, you will receive additional information from your provider and your local health department at that time. Remain at home until you are cleared by the health provider or public health authorities. Keep a log of visitors to your home, notify any visitors to your home of your isolation status. If you plan to move to a new address or leave the county, notify the local health department in your County. Call your doctor or seek care if you have an urgent medical need. Before seeking medical care, call ahead to get instructions from the provider before arriving at the medical office clinic or hospital. Notify them that you are being tested for the virus that causes Covid 19 so that arrangements can be made, as necessary, to prevent transmission to others in the healthcare setting. Next, notify the local health department in your county. If a medical emergency arises and you need to call 911, inform the first responders that you are being tested for the virus that causes Covid 19. Next, notify the local health department in your county. Patient Education/Counseling Counseling/Education: Patient presents with upper respiratory symptoms worrisome for possible Covid 19. Patient does not have emergency worring symptoms such as difficulty breathing, shortness of breath, chest pain, pressure, confusion or cyanosis. Patient appears suitable for discharge. Instructed to follow-up with PCP Dr. Tanner. To ED for any change in condition. Patient's vital signs are stable and patient is nontoxic in appearance. Good return precautions have been discussed with patient, patient verbalized understanding and is agreeable with discharge plan of care at this time. RDC Discharge - Discharge Clinical Impression: Encounter for screening laboratory testing for COVID-19 virus in asymptomatic patient Condition: Stable Disposition: Home; Selfcare
== END ==
LOC: RDC 11:55
PROVIDERS: ATTEND Nurse Practitioner Family
DX: Z20.828 Contact with and (suspected) exposure to other viral communicable diseases (principal)
CPT/HCPCS: U0003; C9803; 87635; 99201; 99211

== ENCOUNTER 2020-04-03 15:19 | Emergency (ER) | payer BC ==
[2020-04-03] MEDS ORDERED: NORMAL SALINE 1000 ML 1,000 ML IV ONE (17:05)
[2020-04-03] MEDS ORDERED: CLINDAMYCIN 600 MG/D5W RTU 600 MG/50 ML RTUPB IV ONE (17:06)
[2020-04-03] MEDS ORDERED: KETOROLAC TROMETHAMINE INJ/PF 30 MG/1 ML SDV IV ONE (17:06)
--- NOTE | 2020-04-03 17:12 | ER Document Report ---
ED General - General Chief Complaint: Mouth Problem Stated Complaint: MOUTH PAIN Time Seen by Provider: 04/03/20 16:39 Primary Care Provider: JOSUÉ LAZARO PA-C [Primary Care Provider] - Follow up as needed TRAVEL OUTSIDE OF THE [place] IN LAST 30 DAYS: No - HPI Notes: Chief complaint: Dental pain History of present illness: 59-year-old male presents complaining of toothache and swelling of left side of jaw over the last 1 week. This man has had long- term dental problems and has not seen a dentist in a number of years. He denies shortness of breath or difficulty swallowing. He complains of severe pain and says [id number] medicines are not helping him. No fever or chills. No vomiting. He smokes about a pack cigarettes per day. He has a history of "borderline diabetes" and hypertension. - Related Data Allergies/Adverse Reactions: No Known Allergies Allergy (Verified 09/22/19 14:52) Home Medications: lisinopril, metformin, atorvastatin, ventolin, "another in haler" Past Medical History - General Information source: Patient, Relative - Social History Smoking Status: Current Every Day Smoker Frequency of alcohol use: None Drug Abuse: None Family History: CAD, DM, Hyperlipidemia, Hypertension, Malignancy. denies: Arthritis, COPD, CVA, Thyroid Disfunction Patient has homicidal ideation: No - Past Medical History Cardiac Medical History: Reports: Hx Hypercholesterolemia, Hx Hypertension Denies: Hx Coronary Artery Disease, Hx Heart Attack Pulmonary Medical History: Reports: Hx COPD, Hx Pneumonia Denies: Hx Asthma, Hx Bronchitis Neurological Medical History: Denies: Hx Cerebrovascular Accident, Hx Seizures Endocrine Medical History: Reports: Hx Diabetes Mellitus Type 2 Renal/ Medical History: Denies: Hx Peritoneal Dialysis Musculoskeletal Medical History: Denies Hx Arthritis, Reports Hx Musculoskeletal Deformity, Reports Hx Musculoskeletal Trauma Psychiatric Medical History: Denies: Hx Depression - Immunizations Immunizations up to date: Yes Hx Diphtheria, Pertussis, Tetanus Vaccination: Yes Review of Systems - Review of Systems Notes: Constitutional: As per HPI. HENT: As per HPI Eyes: Negative for drainage. Cardiovascular: Negative. Respiratory: As per HPI. Gastrointestinal: No vomiting or diarrhea. Genitourinary: Urinating normally. Musculoskeletal: Negative. Skin: Negative for rash. Neurological: Negative. 10 point ROS negative except as marked above and in HPI. Physical Exam - Vital signs Vitals: Temp Pulse Resp BP Pulse Ox 98.5 F 100 16 160/93 H 97 04/03/20 15:44 04/03/20 15:44 04/03/20 15:44 04/03/20 15:44 04/03/20 15:44 - Notes Notes: GENERAL: Well-developed well-nourished middle-age male appearing moderately uncomfortable but otherwise in no acute distress. SKIN: Good turgor no rashes. HEAD: Normocephalic atraumatic. EYES: PERRLA. EOMI. Conjunctivae and sclerae clear. EARS: CANALS AND TMS CLEAR. NOSE: CLEAR. MOUTH: Advanced decay of multiple teeth with extensive periodontal disease. Patient has swelling over the left mandibular area with associated tenderness. There is no elevation of the tongue or tenderness/induration in the submental area on palpation moist mucosa. No stridor or edema. No drooling. NECK: Supple. No masses or thyromegaly. Multiple enlarged anterior cervical lymph nodes bilaterally which are rubbery and freely mobile. Carotids 2+ without bruits. No JVD. BACK: Symmetrical without tenderness. CHEST: Respirations unlabored. Breath sounds clear and symmetrical. HEART: Regular rhythm. No murmur gallop or rub. ABDOMEN: Soft nontender without masses, organomegaly or rebound. Bowel sounds normally active. No bruits. GENITALIA: Deferred. EXTREMITIES: No edema. No calf tenderness. Cap refill less than 1.5 seconds. Dorsalis pedis and posterior tibial pulses 3+ and symmetrical. NEUROLOGICAL: GCS 15. Alert and oriented x3. Normal gait. Fluent speech. Cranial nerves II through XII intact. Sensorimotor and cerebellar normal. Normal tone. PSYCHIATRIC: Appropriate affect. Course - Re-evaluation Re-evalutation: 04/03/20 18:46 Patient received IV Toradol and IV clindamycin. Symptomatically improved. White count was elevated 17,000. He has no fever here. His basic metabolic profile is normal. His blood sugar is not elevated here. He appears stable for outpatient follow-up with a dentist and appropriate referral has been made. Findings, clinical impression and plan of treatment have been discussed with patient/family. Understanding of current findings and recommendations has been acknowledged by them and there is agreement regarding disposition and follow-up. - Vital Signs Vital signs: Temp Pulse Resp BP Pulse Ox 98.5 F 100 16 160/93 H 97 04/03/20 15:44 04/03/20 15:44 04/03/20 15:44 04/03/20 15:44 04/03/20 15:44 - Laboratory Results Result Diagrams: 04/03/20 17:27 04/03/20 17:27 Laboratory Results Interpreted: 04/03/20 17:27 WBC 17.2 H RBC 5.56 H RDW 14.8 H Absolute Neuts (auto) 10.8 H Absolute Monos (auto) 1.5 H Critical Laboratory Results Reviewed: Yes Attending or Supervising Physician who Reviewed Labs: SONDRA CR - Radiology Results Critical Radiology Results Reviewed: No Critical Results Discharge - Discharge Clinical Impression: Dental abscess Condition: Stable Disposition: HOME, SELF-CARE Additional Instructions: Dental Infection or Abscess You have an infection, perhaps an abscess (pus formation) of the gum around one of your teeth, which is probably decayed. If there is an abscess, it may drain on its own or it may need to be opened or lanced. Severe swelling or paul inage around a tooth usually means a deep dental abscess which usually requires evaluation and treatment by a dentist or oral surgeon. Antibiotics may be prescribed while awaiting dental treatment. If you develop high fever with chills, worsening pain, or increasing swelling in the area, see a dentist or oral surgeon immediately or return to the Emergency Department immediately. Follow-up with referral dentist. Take prescribed medications as per instruction. You have been provided a work note for the next 3 days. Return here as needed for new or worsening symptoms: Pain that is worsening or unimproved Uncontrolled vomiting High fever or shaking chills Overall worsening Prescriptions: Ketorolac Tromethamine [Toradol 10 mg Tablet] 10 mg PO Q6HP PRN 10 Days #20 tablet PRN Reason: Amoxicillin 1 tab PO TID #30 tab Forms: Return to Work Referrals: JOSUÉ LAZARO PA-C [Primary Care Provider] - Follow up as needed
[2020-04-03 17:58] LABS: ABSOLUTE BASOPHILS # (AUTO) 0.2 10^3/uL (0.0-0.2); ABSOLUTE EOSINOPHILS # (AUTO) 0.3 10^3/uL (0.0-0.6); ABSOLUTE LYMPHOCYTES (AUTO) 4.4 10^3/uL (0.5-4.7); ABSOLUTE MONOCYTES (AUTO) 1.5 10^3/uL (0.1-1.4); ABSOLUTE NEUT (AUTO) 10.8 10^3/uL (1.7-8.2); BASOPHILS % (AUTO) 0.9 % (0-2); EOSINOPHILS % (AUTO) 1.6 % (0-6); HEMATOCRIT 48.5 % (37.9-51.0); HEMOGLOBIN 16.2 g/dL (13.5-17.0); LYMPHOCYTES % (AUTO) 25.8 % (13-45); MEAN CORPUSCULAR HEMOGLOBIN 29.1 pg (27.0-33.4); MEAN CORPUSCULAR HGB CONC 33.4 g/dL (32.0-36.0); MEAN CORPUSCULAR VOLUME 87 fl (80-97); MONOCYTES % (AUTO) 8.7 % (3-13); PLATELET COUNT 320 10^3/uL (150-450); RED BLOOD COUNT 5.56 10^6/uL (4.35-5.55); RED CELL DISTRIBUTION WIDTH 14.8 % (11.5-14.0); TOTAL CELLS COUNTED % (AUTO) 100 %; WHITE BLOOD COUNT 17.2 10^3/uL (4.0-10.5)
[2020-04-03 18:19] LABS: ANION GAP 12 (5-19); BLOOD UREA NITROGEN 12 mg/dL (7-20); CALCIUM 9.9 mg/dL (8.4-10.2); CARBON DIOXIDE 25 mmol/L (22-30); CHLORIDE 101 mmol/L (98-107); GLUCOSE 99 mg/dL (75-110); POTASSIUM 4.7 mmol/L (3.6-5.0)
[2020-04-03 19:04] VITALS: BP 131/80
== END 2020-04-03 19:03 | disposition home or self-care (01) ==
LOC: ER 15:19
DX: K04.7 Periapical abscess without sinus (principal); K08.89 Other specified disorders of teeth and supporting structures; R22.0 Localized swelling, mass and lump, head; F17.210 Nicotine dependence, cigarettes, uncomplicated; I10 Essential (primary) hypertension; Z79.899 Other long term (current) drug therapy; Z79.84 Long term (current) use of oral hypoglycemic drugs; F17.200 Nicotine dependence, unspecified, uncomplicated; J44.9 Chronic obstructive pulmonary disease, unspecified; E11.9 Type 2 diabetes mellitus without complications
CPT/HCPCS: 99284; 96375; 96365; 36415; 87040; 85025; 87077; 80048; J1885; J7030